=== PATIENT | male | born 1985 | race Caucasian/White ===

== ENCOUNTER 2017-10-15 11:36 | Emergency (ER) | payer MEDICAID ==
[~2017-10-15] VITALS: Ht 180.3 cm; Wt 98.3 kg
[~2017-10-15 11:36] MED LIST: ALPR0.5T9 PO
[2017-10-15] MEDS ORDERED: clindamycin 600mg/D5W 50ml 50 ML IV ONE (14:00)
[2017-10-15] MEDS ORDERED: HYDROmorphone 1 mg/ml syringe IV ONE (14:00)
[2017-10-15] MEDS ORDERED: CLIN150C2 PO (14:03)
[2017-10-15] MEDS ORDERED: HYDR-3965 PO (14:03)
[2017-10-15] MEDS ORDERED: HYDROmorphone inj. 0.5 MG/0.5 ML DISP.SYRIN IV ONE (14:05)
[2017-10-15 14:18] LABS: BASOPHILS # (AUTO) 0.1 X10'3 (0-0.2); BASOPHILS % (AUTO) 0.8 % (0-1); EOSINOPHILS # (AUTO) 0.1 X10'3 (0-0.9); HEMATOCRIT 44.3 % (42.0-52.0); HEMOGLOBIN 15.5 g/dl (14.0-17.9); LYMPHOCYTES # (AUTO) 1.7 X10'3 (1.1-4.8); LYMPHOCYTES % (AUTO) 13.2 % (21-51); MEAN CORPUSCULAR VOLUME 91.5 FL (78-98); MEAN PLATELET VOLUME 6.9 FL (7.4-10.4); MONOCYTES # (AUTO) 0.9 X10'3 (0-0.9); MONOCYTES % (AUTO) 6.6 % (2-12); NEUTROPHILS # (AUTO) 10.3 X10'3 (1.8-7.7); NEUTROPHILS % (AUTO) 78.4 % (42-75); PLATELET COUNT 317 X10'3 (140-440); RED BLOOD COUNT 4.84 X10'6 (4.70-6.10); RED CELL DISTRIBUTION WIDTH 13.4 % (11.5-14.5); WHITE BLOOD COUNT 13.1 X10'3 (4.5-11.0)
[2017-10-15 14:40] LABS: ALANINE AMINOTRANSFERASE 23 U/L (12-78); ALBUMIN 3.9 G/DL (3.4-5.0); ALKALINE PHOSPHATASE 77 IU/L (46-116); ANION GAP 9 (8-16); ASPARTATE AMINO TRANSFERASE 11 U/L (10-37); BILIRUBIN,TOTAL 1.2 MG/DL (0.1-1.0); BLOOD UREA NITROGEN 7 MG/DL (7-18); BUN/CREATININE RATIO 8.1 (5.4-32.0); CALCIUM 9.2 MG/DL (8.5-10.1); CHLORIDE 105 MMOL/L (99-107); CREATININE 0.86 MG/DL (0.60-1.10); GLUCOSE 99 MG/DL (70-104); SODIUM 142 MMOL/L (135-145); TOTAL PROTEIN 7.8 G/DL (6.4-8.2); eGFR > 90 ML/MIN
[2017-10-15] MEDS ORDERED: iohexol 300mg/ml 100ml inj. ONE (14:58)
[2017-10-15 16:16] VITALS: BP 143/79
== END 2017-10-15 16:19 | disposition home or self-care (01) ==
LOC: ER 11:37
DX: K04.7 Periapical abscess without sinus (principal); F17.200 Nicotine dependence, unspecified, uncomplicated; F15.10 Other stimulant abuse, uncomplicated; Z79.899 Other long term (current) drug therapy
CPT/HCPCS: 36415; 70487; 80053; 85025; 96365; 96375; 99285; J1170; J3490; Q9967

== ENCOUNTER 2017-11-09 14:55 | Emergency (ER) | payer MEDICAID ==
[~2017-11-09] VITALS: Ht 177.8 cm; Wt 83.4 kg
[~2017-11-09 14:55] MED LIST changes: +CLIN150C2 PO; +HYDR-3965 PO
[2017-11-09] MEDS ORDERED: ketorolac trometh. 30mg/ml inj. IM ONE (15:45)
[2017-11-09] MEDS ORDERED: LIDOcaine 1% 30ml preserv. free vial IJ ONE (15:50)
[2017-11-09 16:28] LABS: BASOPHILS # (AUTO) 0.1 X10'3 (0-0.2); BASOPHILS % (AUTO) 0.6 % (0-1); EOSINOPHILS # (AUTO) 0.1 X10'3 (0-0.9); EOSINOPHILS % (AUTO) 1.1 % (0-6); HEMATOCRIT 41.7 % (42.0-52.0); HEMOGLOBIN 14.1 g/dl (14.0-17.9); LYMPHOCYTES # (AUTO) 2.2 X10'3 (1.1-4.8); MEAN CORPUSCULAR HEMOGLOBIN 31.5 PG (27.0-31.0); MEAN CORPUSCULAR HGB CONC 33.9 % (33.0-36.5); MEAN PLATELET VOLUME 7.1 FL (7.4-10.4); MONOCYTES # (AUTO) 0.7 X10'3 (0-0.9); MONOCYTES % (AUTO) 6.6 % (2-12); NEUTROPHILS # (AUTO) 7.8 X10'3 (1.8-7.7); NEUTROPHILS % (AUTO) 71.7 % (42-75); PLATELET COUNT 364 X10'3 (140-440); RED BLOOD COUNT 4.48 X10'6 (4.70-6.10); RED CELL DISTRIBUTION WIDTH 13.2 % (11.5-14.5); WHITE BLOOD COUNT 10.8 X10'3 (4.5-11.0)
[2017-11-09 16:48] LABS: ALANINE AMINOTRANSFERASE 34 U/L (12-78); ALKALINE PHOSPHATASE 61 IU/L (46-116); ANION GAP 12 (8-16); ASPARTATE AMINO TRANSFERASE 16 U/L (10-37); BILIRUBIN,TOTAL 0.6 MG/DL (0.1-1.0); BLOOD UREA NITROGEN 10 MG/DL (7-18); BUN/CREATININE RATIO 10.6 (5.4-32.0); CHLORIDE 104 MMOL/L (99-107); CREATININE 0.94 MG/DL (0.60-1.10); GLUCOSE 119 MG/DL (70-104); POTASSIUM 3.6 MMOL/L (3.5-5.1); SODIUM 142 MMOL/L (135-145); TOTAL CARBON DIOXIDE 26.4 MMOL/L (24-32); TOTAL PROTEIN 7.9 G/DL (6.4-8.2); eGFR > 90 ML/MIN
[2017-11-09 17:29] LABS: URINE AMPHETAMINE SCREEN NEGATIVE (Neg); URINE BARBITUATE SCREEN NEGATIVE (Neg); URINE BENZODIAZEPINES SCREEN NEGATIVE (Neg); URINE CANNABINOID SCREEN POSITIVE (Neg); URINE COCAINE SCREEN NEGATIVE (Neg); URINE METHADONE SCREEN NEGATIVE (Neg); URINE OPIATE SCREEN NEGATIVE (Neg); URINE PHENCYCLIDINE SCREEN NEGATIVE (Neg)
[2017-11-09] MEDS ORDERED: TETanus/Pertussis (Acell)/Diphther VAC/PF (Tdap-Adult) 0.5ml syringe IM ONE (17:45)
[2017-11-09 17:50] VITALS: BP 117/83
== END 2017-11-09 18:12 | disposition home or self-care (01) ==
LOC: ER 14:55
DX: L02.01 Cutaneous abscess of face (principal); F15.10 Other stimulant abuse, uncomplicated
CPT/HCPCS: 10060; 36415; 80053; 80305; 83605; 84145; 85025; 87040; 90471; 90715; 93005; 96372; 99285; A6449; J1885; J3490; 41800

== ENCOUNTER 2020-08-20 18:33 | Emergency (ER) | payer MEDICAID ==
[~2020-08-20] VITALS: Ht 177.8 cm; Wt 104.1 kg
[~2020-08-20 18:33] MED LIST changes: -CLIN150C2 PO; -HYDR-3965 PO
[2020-08-20 18:40] VITALS: BP 125/85
[2020-08-21] MEDS ORDERED: TRAZ150T78 PO (17:00)
== END 2020-08-20 22:18 | disposition left against medical advice (07) ==
LOC: ER 18:34
DX: Z00.8 Encounter for other general examination (principal); Z53.21 Procedure and treatment not carried out due to patient leaving prior to being seen by health care provider

== ENCOUNTER 2020-08-21 12:10 | Emergency (ER) | payer MEDICAID ==
--- NOTE | 2020-08-21 13:29 | NUR ---
Patient not in lobby, called three times. Patient on written 2147. [facility] notified of elopement. [facility] notified and they got discription from case management and notified law enforcement.
[2020-08-21] MEDS ORDERED: TRAZ150T78 PO (17:00)
== END 2020-08-21 13:42 | disposition left against medical advice (07) ==
LOC: ER 12:10
DX: Z00.8 Encounter for other general examination (principal); Z53.21 Procedure and treatment not carried out due to patient leaving prior to being seen by health care provider

== ENCOUNTER 2020-08-21 16:12 | Emergency (ER) | payer MEDICAID ==
[~2020-08-21] VITALS: Ht 177.8 cm; Wt 91.3 kg
--- NOTE | 2020-08-21 16:15 | NUR ---
Pt walked back from ER main to bed 23 accompanied by security and PCT. Pt is on a 5150 for DTS and DTO. Pt was brought in earlier and eloped then returned. Per report, pt was due for his WHITNEY today, mother reported that he had been making threats to harm her, his father, and himself. contact was made last evening, pt made threatening statements like, "I will cut you up with a chainsaw." Pt has a Hx of a past suicide attempt by cutting his own throat. Pt also has a Hx of self-mutilation and other self harming behaviors. Pt has been hospitialized for mental health issues several times. Pt's brother committed suicide. During mental health assessment by this RN, pt stated that he felt like stabbing his hands/fingers with knives. When asked pt if he felt like hurting anyone else he laughed inappropriately and would not answer the question. Pt denies ever hurting anyone else in the past. Pt appears to be thought blocking at times. Pt would not answer the questions about AH/VH. Pt is a heavy smoker, his fingernails are nicotine stained, pt smells of alcohol. Addendum: 08/21/20 at 1720 by MAC Pt was dropped off here at the ER by the last evening 08/20/20 but left without being seen.
--- NOTE | 2020-08-21 16:43 | NUR ---
PT COOPERATING WITH BLOOD DRAW FROM [employer].
[2020-08-21 16:57] LABS: URINE AMPHETAMINE SCREEN NEGATIVE (Neg); URINE BARBITUATE SCREEN NEGATIVE (Neg); URINE BENZODIAZEPINES SCREEN NEGATIVE (Neg); URINE CANNABINOID SCREEN POSITIVE (Neg); URINE COCAINE SCREEN NEGATIVE (Neg); URINE METHADONE SCREEN NEGATIVE (Neg); URINE OPIATE SCREEN NEGATIVE (Neg); URINE PHENCYCLIDINE SCREEN NEGATIVE (Neg)
[2020-08-21] MEDS ORDERED: hydrOXYzine 25 MG tablet PO PRN (17:00)
[2020-08-21] MEDS ORDERED: NICOTINE POLACRILEX 2 MG LOZENGE BC PRN (17:00)
[2020-08-21] MEDS ORDERED: TRAZ150T78 PO (17:00)
[2020-08-21] MEDS ORDERED: nicotine 21mg patch - 24 hr TD ONE (17:00)
--- NOTE | 2020-08-21 17:00 | NUR ---
UA was collected and sent to lab.
[2020-08-21 17:13] LABS: BASOPHILS # (AUTO) 0.1 X10'3 (0-0.2); BASOPHILS % (AUTO) 1.3 % (0-1); EOSINOPHILS # (AUTO) 0.1 X10'3 (0-0.9); EOSINOPHILS % (AUTO) 0.9 % (0-6); HEMATOCRIT 43.3 % (42.0-52.0); HEMOGLOBIN 14.7 g/dl (14.0-17.9); LYMPHOCYTES # (AUTO) 2.1 X10'3 (1.1-4.8); LYMPHOCYTES % (AUTO) 20.8 % (21-51); MEAN CORPUSCULAR HGB CONC 33.8 g/dL (33.0-36.5); MEAN CORPUSCULAR VOLUME 94.6 FL (78-98); MEAN PLATELET VOLUME 6.6 FL (7.4-10.4); MONOCYTES # (AUTO) 0.7 X10'3 (0-0.9); MONOCYTES % (AUTO) 6.6 % (2-12); NEUTROPHILS % (AUTO) 70.4 % (42-75); PLATELET COUNT 291 X10'3 (140-440); RED BLOOD COUNT 4.58 X10'6 (4.70-6.10); RED CELL DISTRIBUTION WIDTH 12.5 % (11.5-14.5); WHITE BLOOD COUNT 9.9 X10'3 (4.5-11.0)
[2020-08-21 17:22] LABS: ALANINE AMINOTRANSFERASE 26 U/L (12-78); ALBUMIN/GLOBULIN RATIO 1.3 (1.1-1.5); ALKALINE PHOSPHATASE 60 IU/L (46-116); ANION GAP 12 (8-16); ASPARTATE AMINO TRANSFERASE 13 U/L (10-37); BILIRUBIN,TOTAL 0.5 MG/DL (0.1-1.0); BLOOD UREA NITROGEN 12 MG/DL (7-18); BUN/CREATININE RATIO 12.9 (5.4-32.0); CALCIUM 8.7 MG/DL (8.5-10.1); CHLORIDE 104 MMOL/L (99-107); CREATININE 0.93 MG/DL (0.60-1.10); ETHANOL 0.048 GM/DL (0.0-0.010); GLUCOSE 87 MG/DL (70-104); POTASSIUM 4.1 MMOL/L (3.5-5.1); SODIUM 139 MMOL/L (135-145); TOTAL CARBON DIOXIDE 23.4 MMOL/L (24-32); TOTAL PROTEIN 7.1 G/DL (6.4-8.2); eGFR > 90 ML/MIN
[2020-08-21 17:24] LABS: ACETAMINOPHEN < 2.0 UG/ML (10-30)
--- NOTE | 2020-08-21 17:47 | NUR ---
Pt did not cooperate with answering most questions on the [facility] suicide risk assessment. Pt is on Q 15 minute safety checks. Pt is directly in front of the nurses' station and within sight at all times.
[2020-08-21 17:54] LABS: CLARITY,URINE SLIGHTLY CLOUDY (Clear); COLOR,URINE YELLOW (Yellow); GLUCOSE, URINE NEGATIVE (Neg); KETONES,URINE NEGATIVE (Neg); NITRITES, URINE NEGATIVE (Neg); OCCULT BLOOD,URINE NEGATIVE (Neg); PROTEIN,URINE NEGATIVE (Neg); UROBILINOGEN,URINE 0.2 E.U/dL (0.2-1.0)
[2020-08-21] MEDS ORDERED: traZODone 150mg tablet PO PRN (17:55)
[2020-08-21 18:09] LABS: LEUKOCYTE ESTERASE ,URINE TRACE (Neg); UA COLLECTION TYPE VOIDED
[2020-08-21 18:10] LABS: MUCUS STRANDS MANY /LPF (Neg); RBC,URINE 0-2 /HPF (0-2); SQUAMOUS EPITHELIAL CELL,UR MANY /LPF (FEW)
[2020-08-21 18:11] LABS: BACTERIA,URINE FEW /HPF (Neg); WBC,URINE 30-50 /HPF (0-4)
--- NOTE | 2020-08-21 18:15 | NUR ---
Lab called to say urine was rejected for culture and we need to recollect.
[2020-08-22 05:50] VITALS: BP 111/68
--- NOTE | 2020-08-22 06:04 | NUR ---
told pt needed new urine sample for accuracy. says he cannot urinate at this time
[2020-08-22] MEDS ORDERED: nicotine 21mg patch - 24 hr TD PRN (06:25)
--- NOTE | 2020-08-22 07:28 | NUR ---
Pt transfered from [facility] at 0715. He is A&Ox1; confused as to why he is here and does not know where he is. Pt does not understand he is unable to smoke here and persistenly asks and declines nictotine patch and lozenge. He is unable to cooperate in a full physical and mental health assessment at this time. He denies and has no recollection of threatening his life or his parents (the reason for current hold). UA was obtained for pt to be medically cleared. Pt eloped yesterday; pt wanders and states he doesn't want to be here but is redirectable at this time.
[2020-08-22] MEDS ORDERED: OLANZapine 5mg rapidly disint. tablet PO ONE (07:35)
--- NOTE | 2020-08-22 07:51 | NUR ---
packet faxed to [facility]
--- NOTE | 2020-08-22 08:07 | NUR ---
Breaking primary RN, pt was just given medications, was accepting of care, is now laying in bed, appears calm at this time
--- NOTE | 2020-08-22 08:14 | NUR ---
pt is now on the phone cussing at his mother and becoming agitated, security was called and are standing
--- NOTE | 2020-08-22 08:15 | NUR ---
talked to patients mom, mom informed me that the patient missed his shot [facility]. mom said that the patient has taken seroquel but now takes vraylar 6mg. mom informed that the patient tried to slit his throat and tried to cut off his penis in 2010. his brother committed suicide in 2016 who had aspergers. mom feels comfortable taking patient back home when he is stablized.
[2020-08-22] MEDS ORDERED: LORazepam 1 MG tablet PO ONE (08:30)
--- NOTE | 2020-08-22 10:07 | NUR ---
Pt sleeping after PRN administration. No signs of distress, breathing even and unlabored. He declined breakfast but drank the decaf coffee. [facility] called for report and will call back to notify if accepted.
--- NOTE | 2020-08-22 10:39 | NUR ---
Pt accepted to [facility] pending negative Covid test.
--- NOTE | 2020-08-22 10:49 | NUR ---
Security called for standby for covid test; Pt cooperated with the procedure. Awaiting results.
--- NOTE | 2020-08-22 13:27 | NUR ---
Pt awake, shifting on feet at bedside. Declines lunch tray but sipping on decaf coffee. Pt saying he hopes to leave soon. Taking a few bites of a turkey sandwich. Smacking hands together. Pt is redirectable to bed area.
--- NOTE | 2020-08-22 14:14 | NUR ---
Unable to have discharge paperwork signed due to pt psychosis but attempted to verbally review with patient. Belongings transported with pt. Pt driven by Shon Campbell at 1345. Process Treater given the original 5150. Addendum: 08/22/20 at 1415 by FARHAD Pt not cooperative with vitals prior to transport.
== END 2020-08-22 14:17 ==
LOC: ER 16:12
DX: T14.91XA Suicide attempt, initial encounter (principal); F41.9 Anxiety disorder, unspecified; F20.9 Schizophrenia, unspecified; Z79.899 Other long term (current) drug therapy; Z20.828 Contact with and (suspected) exposure to other viral communicable diseases; X78.9XXA Intentional self-harm by unspecified sharp object, initial encounter; Y93.89 Activity, other specified; Y92.89 Other specified places as the place of occurrence of the external cause; Y99.8 Other external cause status
CPT/HCPCS: 36415; 80053; 80305; 80320; 80329; 81001; 84443; 85025; 87635; 99285; C9803; Q0177

== ENCOUNTER 2021-06-16 20:56 | Emergency (ER) | payer MEDICAID ==
[~2021-06-16] VITALS: Ht 180.3 cm; Wt 109.1 kg
[~2021-06-16 20:56] MED LIST changes: -ALPR0.5T9 PO; +TRAZ150T78 PO
[2021-06-16 21:34] LABS: BASOPHILS # (AUTO) 0.1 X10'3 (0-0.2); BASOPHILS % (AUTO) 0.7 % (0-1); EOSINOPHILS # (AUTO) 0.2 X10'3 (0-0.9); HEMOGLOBIN 14.2 g/dl (14.0-17.9); LYMPHOCYTES # (AUTO) 2.4 X10'3 (1.1-4.8); LYMPHOCYTES % (AUTO) 24.1 % (21-51); MEAN CORPUSCULAR HEMOGLOBIN 30.2 PG (27.0-31.0); MEAN CORPUSCULAR HGB CONC 33.1 g/dL (33.0-36.5); MEAN CORPUSCULAR VOLUME 91.2 FL (78-98); MEAN PLATELET VOLUME 7.2 FL (7.4-10.4); MONOCYTES # (AUTO) 1.2 X10'3 (0-0.9); NEUTROPHILS % (AUTO) 61.2 % (42-75); PLATELET COUNT 252 X10'3 (140-440); RED BLOOD COUNT 4.71 X10'6 (4.70-6.10); RED CELL DISTRIBUTION WIDTH 14.1 % (11.5-14.5); WHITE BLOOD COUNT 9.9 X10'3 (4.5-11.0)
--- NOTE | 2021-06-16 21:39 | NUR ---
SPOKE W/TRINH AT [facility]. RECOMMENDATIONS FOR ZYPREXA OVERDOSE: MONITOR FOR HYPOTENSION, TACHYARDIA, WIDENING QRS AND QTC INTERVALS.FOR QRS INTERVALS >120 TREAT W/ BICARB BOLUS. QTC INTERVAL GREATER THAN 500 TREAT W/ 1 GM MAGNESIUM. IF PT DEVELOPS SEIZURES TREAT W/ ATIVAN. USE NOREPI FOR HYPOTENSION IF FLUID RESUSITATION IS UNSUCESSFUL. CHARCOAL NOT RECOMMENDED AT THIS TIME PER ASPIRATION RISKS.
[2021-06-16 21:46] LABS: URINE AMPHETAMINE SCREEN NEGATIVE (Neg); URINE BARBITUATE SCREEN NEGATIVE (Neg); URINE BENZODIAZEPINES SCREEN NEGATIVE (Neg); URINE CANNABINOID SCREEN POSITIVE (Neg); URINE COCAINE SCREEN NEGATIVE (Neg); URINE METHADONE SCREEN NEGATIVE (Neg); URINE OPIATE SCREEN NEGATIVE (Neg); URINE PHENCYCLIDINE SCREEN NEGATIVE (Neg)
[2021-06-16 21:53] LABS: ALANINE AMINOTRANSFERASE 21 U/L (12-78); ALBUMIN 3.2 G/DL (3.4-5.0); ALKALINE PHOSPHATASE 70 IU/L (46-116); ANION GAP 7 (8-16); ASPARTATE AMINO TRANSFERASE 15 U/L (10-37); BILIRUBIN,TOTAL 0.3 MG/DL (0.1-1.0); BLOOD UREA NITROGEN 21 MG/DL (7-18); BUN/CREATININE RATIO 15.1 (5.4-32.0); CALCIUM 8.2 MG/DL (8.5-10.1); CHLORIDE 112 MMOL/L (99-107); CREATININE 1.39 MG/DL (0.60-1.10); GLUCOSE 107 MG/DL (70-104); POTASSIUM 4.7 MMOL/L (3.5-5.1); SODIUM 146 MMOL/L (135-145); TOTAL CARBON DIOXIDE 27.1 MMOL/L (24-32); TOTAL PROTEIN 6.5 G/DL (6.4-8.2); eGFR 58 ML/MIN
[2021-06-16] MEDS ORDERED: normal saline 1000ml 1,000 ML IV ONE (21:55)
[2021-06-16] MEDS ORDERED: LORazepam 2 mg/ml vial IV ONE (21:55)
[2021-06-16 22:00] LABS: ACETAMINOPHEN < 2.0 UG/ML (10-30); ETHANOL < 0.010 GM/DL (0.0-0.010)
--- NOTE | 2021-06-16 23:41 | NUR ---
CLARK FROM [facility] CALLED FOR UPDATE. LABS, EKG, VITALS, AND MEDICATIONS REVIEWED. REPEAT EKG RECOMMENDED 4 HOURS FROM INITIAL. CONT TO TREAT W/ ATIVAN NEEDED.
[2021-06-17] MEDS ORDERED: LORazepam 2 mg/ml vial IV ONE (00:50)
[2021-06-17] MEDS ORDERED: LORazepam 2 mg/ml vial ONE (01:24)
--- NOTE | 2021-06-17 06:30 | NUR ---
bilateral lower restraints removed, patient educated on process for complete removal, patient unable to verbalize understanding, will continue to monitor
[2021-06-17 07:07] LABS: UA COLLECTION TYPE STRAIGHT CATH
[2021-06-17 07:09] LABS: COLOR,URINE Yellow (Yellow); GLUCOSE, URINE Negative (Neg); KETONES,URINE Negative (Neg); OCCULT BLOOD,URINE Negative (Neg); PROTEIN,URINE Negative (Neg)
[2021-06-17 07:10] LABS: CLARITY,URINE Clear (Clear); LEUKOCYTE ESTERASE ,URINE Negative (Neg); NITRITES, URINE Negative (Neg); UROBILINOGEN,URINE 0.2 E.U/dL (0.2-1.0)
[2021-06-17 08:00] VITALS: BP 142/86
--- NOTE | 2021-06-17 08:52 | NUR ---
PACKET FAXED TO [facility]
--- NOTE | 2021-06-17 13:58 | NUR ---
Patient was on "non-behavioral" restraints from 06/16/21 at 2111 until 06/17/21 at 0730.
--- NOTE | 2021-06-17 14:10 | NUR ---
1400 PATIENT REQUESTED TO SPEAK WITH HIS MOTHER, SEEN UP OUT OF BED, LOOKING AT LUNCH TRAY. STATES HE DOES NOT WANT TO EAT AT THIS TIME. 1410 PATIENT SEEN BY ER STAFF THROWING PHONE AFTER TELEPHONE CONVERSATION AND PROCEEDED TO LAY DOWN ON LEFT SIDE AND RESTING COMFORTABLE. PAT WITHIN SIGHT OF STAFF AT ALL TIMES.
--- NOTE | 2021-06-17 19:05 | NUR ---
PT DC'D WITH [facility]
== END 2021-06-17 19:06 ==
LOC: ER 20:56
DX: T43.592A Poisoning by other antipsychotics and neuroleptics, intentional self-harm, initial encounter (principal); Z20.822 Contact with and (suspected) exposure to COVID-19; R41.82 Altered mental status, unspecified; F41.9 Anxiety disorder, unspecified; F31.9 Bipolar disorder, unspecified; F20.9 Schizophrenia, unspecified; F15.90 Other stimulant use, unspecified, uncomplicated; Z72.89 Other problems related to lifestyle; Z79.899 Other long term (current) drug therapy; Y92.89 Other specified places as the place of occurrence of the external cause
CPT/HCPCS: 36415; 71045; 80053; 80305; 80320; 80329; 81003; 84443; 85025; 87635; 96361; 96374; 96376; 99285; C9803; J2060; J7030; 93005

== ENCOUNTER 2021-12-20 01:59 | Emergency (ER) | payer MEDICAID ==
[~2021-12-20] VITALS: Ht 180.3 cm; Wt 100.0 kg
[2021-12-20 02:45] LABS: CLARITY,URINE CLEAR (Clear); COLOR,URINE STRAW (Yellow); GLUCOSE, URINE NEGATIVE (Neg); KETONES,URINE NEGATIVE (Neg); LEUKOCYTE ESTERASE ,URINE NEGATIVE (Neg); NITRITES, URINE NEGATIVE (Neg); OCCULT BLOOD,URINE NEGATIVE (Neg); PROTEIN,URINE NEGATIVE (Neg); UA COLLECTION TYPE URINAL; UROBILINOGEN,URINE 0.2 E.U/dL (0.2-1.0)
--- NOTE | 2021-12-20 02:45 | NUR ---
NOT IN LOBBY Addendum: 12/20/21 at 0310 by AFLYNN INCORRECT PATIENT
[2021-12-20 02:47] LABS: BASOPHILS % (AUTO) 0.5 % (0-1); EOSINOPHILS # (AUTO) 0.2 X10'3 (0-0.9); EOSINOPHILS % (AUTO) 1.8 % (0-6); HEMOGLOBIN 14.1 g/dl (14.0-17.9); LYMPHOCYTES # (AUTO) 2.4 X10'3 (1.1-4.8); LYMPHOCYTES % (AUTO) 25.6 % (21-51); MEAN CORPUSCULAR HGB CONC 33.5 g/dL (33.0-36.5); MEAN CORPUSCULAR VOLUME 89.5 FL (78-98); MEAN PLATELET VOLUME 7.1 FL (7.4-10.4); MONOCYTES # (AUTO) 0.9 X10'3 (0-0.9); MONOCYTES % (AUTO) 9.3 % (2-12); NEUTROPHILS # (AUTO) 5.9 X10'3 (1.8-7.7); NEUTROPHILS % (AUTO) 62.8 % (42-75); PLATELET COUNT 277 X10'3 (140-440); RED BLOOD COUNT 4.69 X10'6 (4.70-6.10); RED CELL DISTRIBUTION WIDTH 13.9 % (11.5-14.5); WHITE BLOOD COUNT 9.4 X10'3 (4.5-11.0)
[2021-12-20 02:53] LABS: ALANINE AMINOTRANSFERASE 21 U/L (12-78); ALBUMIN 3.8 G/DL (3.4-5.0); ALBUMIN/GLOBULIN RATIO 1.1 (1.1-1.5); ALKALINE PHOSPHATASE 75 IU/L (46-116); ANION GAP 5 (8-16); ASPARTATE AMINO TRANSFERASE 14 U/L (10-37); BILIRUBIN,TOTAL 0.3 MG/DL (0.1-1.0); BLOOD UREA NITROGEN 11 MG/DL (7-18); BUN/CREATININE RATIO 12.5 (5.4-32.0); CALCIUM 8.6 MG/DL (8.5-10.1); CHLORIDE 108 MMOL/L (99-107); CREATININE 0.88 MG/DL (0.60-1.10); GLUCOSE 97 MG/DL (70-104); POTASSIUM 3.9 MMOL/L (3.5-5.1); SODIUM 141 MMOL/L (135-145); TOTAL CARBON DIOXIDE 28.4 MMOL/L (24-32); TOTAL PROTEIN 7.2 G/DL (6.4-8.2); eGFR > 90 ML/MIN
[2021-12-20 02:54] LABS: URINE AMPHETAMINE SCREEN NEGATIVE (Neg); URINE BARBITUATE SCREEN NEGATIVE (Neg); URINE BENZODIAZEPINES SCREEN NEGATIVE (Neg); URINE CANNABINOID SCREEN POSITIVE (Neg); URINE COCAINE SCREEN NEGATIVE (Neg); URINE METHADONE SCREEN NEGATIVE (Neg); URINE OPIATE SCREEN NEGATIVE (Neg); URINE PHENCYCLIDINE SCREEN NEGATIVE (Neg)
[2021-12-20] MEDS ORDERED: QUET200T31 PO (03:08)
[2021-12-20] MEDS ORDERED: CARI6CAP PO (03:08)
[2021-12-20] MEDS ORDERED: CITA20TA16 PO (03:08)
[2021-12-20] MEDS ORDERED: INDLA60C PO (03:08)
--- NOTE | 2021-12-20 03:53 | NUR ---
Patient's packet was sent to [facility].
[2021-12-20] MEDS ORDERED: LORazepam 2 mg/ml vial IV ONE (05:10)
[2021-12-20] MEDS ORDERED: traZODone 150mg tablet PO PRN (08:45)
[2021-12-20] MEDS ORDERED: citalopram 20mg tablet PO SCH (08:47)
[2021-12-20] MEDS ORDERED: propranolol LA 60 MG cap.SA.24H PO SCH (08:47)
[2021-12-20] MEDS ORDERED: CARIPRAZINE 1.5 MG CAPSULE PO SCH (08:48)
--- NOTE | 2021-12-20 13:56 | NUR ---
[facility] called regarding the pt, stating that he has been accepted to [facility] and they are wanting the pt around 1999. [facility] will be calling back with a knot picker cloth time.
--- NOTE | 2021-12-20 14:04 | NUR ---
Pt will be picked up by [facility] at 1930
[2021-12-20] MEDS ORDERED: nicotine 21mg patch - 24 hr TD ONE (18:50)
--- NOTE | 2021-12-20 18:59 | NUR ---
The patient has been resting on his bed. He ate 100% of his dinner. His affect is flat. His speech is monotone. He stated his mood his "pretty good" He did state he felt anxious. He denies thoughts to harm himself or others. He stated that he regrets the fight he had with his father. He does admit to feeling paranoid. His appetite is good and he had a snack after his evening meal. He was asking for a nicotine patch and Dr. Berrios made aware and order received.
[2021-12-20 19:58] VITALS: BP 111/83
[2021-12-20] MEDS ORDERED: quetiapine 100mg tablet PO SCH (21:00)
== END 2021-12-20 20:01 ==
LOC: ER 02:00
DX: F20.9 Schizophrenia, unspecified (principal); F41.9 Anxiety disorder, unspecified; F15.10 Other stimulant abuse, uncomplicated; Z20.822 Contact with and (suspected) exposure to COVID-19
CPT/HCPCS: 36415; 80053; 80305; 81003; 84443; 85025; 87635; 99285; C9803

== ENCOUNTER 2023-11-17 18:12 | Inpatient (IN) | payer MEDICAID ==
[~2023-11-17] VITALS: Ht 180.3 cm; Wt 115.0 kg
[~2023-11-17 18:12] MED LIST changes: +CARI6CAP PO; +CITA20TA16 PO; +INDLA60C PO; +QUET200T31 PO
[2023-11-17] MEDS: normal saline 1000ML IV soln IVB ONE (19:42)
[2023-11-17 19:52] LABS: BASOPHILS % (AUTO) 0.3 % (0-1); EOSINOPHILS # (AUTO) 0.2 X10'3 (0-0.9); EOSINOPHILS % (AUTO) 1.1 % (0-6); HEMATOCRIT 41.3 % (42.0-52.0); HEMOGLOBIN 13.8 g/dl (14.0-17.9); LYMPHOCYTES # (AUTO) 1.6 X10'3 (1.1-4.8); LYMPHOCYTES % (AUTO) 11.7 % (21-51); MEAN CORPUSCULAR HEMOGLOBIN 30.3 PG (27.0-31.0); MEAN CORPUSCULAR HGB CONC 33.4 g/dL (33.0-36.5); MEAN CORPUSCULAR VOLUME 90.9 FL (78-98); MEAN PLATELET VOLUME 6.8 FL (7.4-10.4); MONOCYTES # (AUTO) 0.8 X10'3 (0-0.9); NEUTROPHILS # (AUTO) 10.8 X10'3 (1.8-7.7); NEUTROPHILS % (AUTO) 80.9 % (42-75); PLATELET COUNT 286 X10'3 (140-440); RED BLOOD COUNT 4.54 X10'6 (4.70-6.10); RED CELL DISTRIBUTION WIDTH 13.8 % (11.5-14.5); WHITE BLOOD COUNT 13.3 X10'3 (4.5-11.0)
[2023-11-17 20:04] LABS: ALBUMIN 3.7 G/DL (3.4-5.0); ANION GAP 12 (8-16); BLOOD UREA NITROGEN 20 MG/DL (7-18); CALCIUM 8.5 MG/DL (8.5-10.1); CHLORIDE 104 MMOL/L (99-107); CREATININE 1.25 MG/DL (0.60-1.10); GLUCOSE 159 MG/DL (70-104); POTASSIUM 4.1 MMOL/L (3.5-5.1); SODIUM 142 MMOL/L (135-145); TOTAL CARBON DIOXIDE 25.9 MMOL/L (24-32); eCRCL 85 ML/MIN; eGFR 64 ML/MIN
[2023-11-17] MEDS: ringers solution, lacted 1,000 ML IV ONE (22:20)
[2023-11-17] MEDS ORDERED: magnesium 4gm in 100ml NS 100 ML IV PRN (22:40)
[2023-11-17] MEDS ORDERED: magnesium hydroxide 30ml (MOM) UD suspension PO PRN (22:40)
[2023-11-17] MEDS ORDERED: ondansetron/PF 4mg/2ml inj IV PRN (22:40)
[2023-11-17] MEDS ORDERED: potassium Cl 20 mEq SR tablet PO PRN ×2 (22:40)
[2023-11-17] MEDS ORDERED: potassium Cl 40MEQ/1/2NS 520ml 520 ML IV PRN (22:40)
[2023-11-17] MEDS ORDERED: magnesium Cl slow-release 64mg tablet PO PRN (22:40)
[2023-11-17] MEDS ORDERED: mag hydrox/Alum hydrox/simeth 30ml oral suspension PO PRN (22:40)
[2023-11-17] MEDS ORDERED: acetaminophen 325mg tablet PO PRN (22:40)
[2023-11-18] VITALS (9 sets, daily range): BP systolic 97–145; BP diastolic 53–79; PULSE 70–101; RESP 15–18; TEMP 97.8–98.2; O2SAT 95–98
[2023-11-18] MEDS: normal saline 1000ml 1,000 ML IV SCH (01:38)
[2023-11-18] MEDS: nicotine 21mg patch - 24 hr TD SCH (08:12)
[2023-11-18 08:43] LABS: BASOPHILS # (AUTO) 0.1 X10'3 (0-0.2); BASOPHILS % (AUTO) 0.7 % (0-1); EOSINOPHILS # (AUTO) 0.2 X10'3 (0-0.9); HEMATOCRIT 35.3 % (42.0-52.0); HEMOGLOBIN 12.1 g/dl (14.0-17.9); LYMPHOCYTES # (AUTO) 1.8 X10'3 (1.1-4.8); MEAN CORPUSCULAR HGB CONC 34.2 g/dL (33.0-36.5); MEAN CORPUSCULAR VOLUME 90.7 FL (78-98); MEAN PLATELET VOLUME 7.7 FL (7.4-10.4); MONOCYTES # (AUTO) 0.8 X10'3 (0-0.9); MONOCYTES % (AUTO) 8.6 % (2-12); NEUTROPHILS # (AUTO) 6.4 X10'3 (1.8-7.7); NEUTROPHILS % (AUTO) 69.7 % (42-75); PLATELET COUNT 259 X10'3 (140-440); RED BLOOD COUNT 3.89 X10'6 (4.70-6.10); RED CELL DISTRIBUTION WIDTH 13.9 % (11.5-14.5); WHITE BLOOD COUNT 9.2 X10'3 (4.5-11.0)
[2023-11-18 09:01] LABS: CHLORIDE 111 MMOL/L (99-107); POTASSIUM 3.6 MMOL/L (3.5-5.1); SODIUM 146 MMOL/L (135-145)
[2023-11-18 09:07] LABS: ALANINE AMINOTRANSFERASE 18 U/L (12-78); ALBUMIN 2.8 G/DL (3.4-5.0); ALBUMIN/GLOBULIN RATIO 0.9 (1.1-1.5); ALKALINE PHOSPHATASE 66 IU/L (46-116); ANION GAP 14 (8-16); BILIRUBIN,TOTAL 0.6 MG/DL (0.1-1.0); BLOOD UREA NITROGEN 12 MG/DL (7-18); BUN/CREATININE RATIO 17.9 (10.0-20.0); CALCIUM 7.9 MG/DL (8.5-10.1); CREATININE 0.67 MG/DL (0.60-1.10); GLUCOSE 110 MG/DL (70-104); TOTAL CARBON DIOXIDE 21.4 MMOL/L (24-32); TOTAL PROTEIN 5.8 G/DL (6.4-8.2); eCRCL 158 ML/MIN; eGFR > 90 ML/MIN
[2023-11-18 09:36] LABS: ASPARTATE AMINO TRANSFERASE 11 U/L (10-37)
[2023-11-18] MEDS ORDERED: OLAN15TA3 PO (14:38)
[2023-11-18] MEDS ORDERED: BUSP10TA11 PO (14:38)
[2023-11-18] MEDS: quetiapine 100mg tablet PO SCH (15:36)
[2023-11-18] MEDS: CITALOpram 10mg tablet PO SCH (15:37)
[2023-11-18] MEDS: propranolol 10mg tablet PO SCH (15:37)
[2023-11-18 16:16] LABS: BILIRUBIN,URINE NEGATIVE (Neg); CLARITY,URINE CLEAR (Clear); COLOR,URINE YELLOW (Yellow); GLUCOSE, URINE NEGATIVE (Neg); KETONES,URINE NEGATIVE (Neg); LEUKOCYTE ESTERASE ,URINE NEGATIVE (Neg); NITRITES, URINE NEGATIVE (Neg); OCCULT BLOOD,URINE NEGATIVE (Neg); PROTEIN,URINE NEGATIVE (Neg); UROBILINOGEN,URINE 0.2 E.U/dL (0.2-1.0)
[2023-11-18 16:21] LABS: URINE AMPHETAMINE SCREEN NEGATIVE (Neg); URINE BARBITUATE SCREEN NEGATIVE (Neg); URINE BENZODIAZEPINES SCREEN NEGATIVE (Neg); URINE METHADONE SCREEN NEGATIVE (Neg)
[2023-11-18 16:22] LABS: URINE CANNABINOID SCREEN POSITIVE (Neg); URINE COCAINE SCREEN NEGATIVE (Neg); URINE OPIATE SCREEN NEGATIVE (Neg); URINE PHENCYCLIDINE SCREEN NEGATIVE (Neg)
[2023-11-18 16:36] LABS: UA COLLECTION TYPE NON-SPECIFIED
[2023-11-18] MEDS: traZODone 150mg tablet PO SCH (20:27)
[2023-11-19] VITALS (8 sets, daily range): BP systolic 91–115; BP diastolic 47–71; PULSE 60–85; RESP 14–19; TEMP 97.3–98.2; O2SAT 94–100
[2023-11-19 06:28] LABS: BASOPHILS % (AUTO) 0.5 % (0-1); EOSINOPHILS # (AUTO) 0.2 X10'3 (0-0.9); EOSINOPHILS % (AUTO) 2.5 % (0-6); HEMOGLOBIN 11.6 g/dl (14.0-17.9); LYMPHOCYTES # (AUTO) 2.2 X10'3 (1.1-4.8); LYMPHOCYTES % (AUTO) 30.5 % (21-51); MEAN CORPUSCULAR HEMOGLOBIN 30.8 PG (27.0-31.0); MEAN CORPUSCULAR HGB CONC 34.1 g/dL (33.0-36.5); MEAN CORPUSCULAR VOLUME 90.4 FL (78-98); MEAN PLATELET VOLUME 7.2 FL (7.4-10.4); MONOCYTES # (AUTO) 0.8 X10'3 (0-0.9); MONOCYTES % (AUTO) 10.8 % (2-12); NEUTROPHILS # (AUTO) 4.1 X10'3 (1.8-7.7); NEUTROPHILS % (AUTO) 55.7 % (42-75); PLATELET COUNT 238 X10'3 (140-440); RED BLOOD COUNT 3.76 X10'6 (4.70-6.10); RED CELL DISTRIBUTION WIDTH 13.7 % (11.5-14.5); WHITE BLOOD COUNT 7.4 X10'3 (4.5-11.0)
[2023-11-19 06:59] LABS: ALANINE AMINOTRANSFERASE 16 U/L (12-78); ALBUMIN 2.4 G/DL (3.4-5.0); ALBUMIN/GLOBULIN RATIO 0.8 (1.1-1.5); ALKALINE PHOSPHATASE 61 IU/L (46-116); ANION GAP 9 (8-16); ASPARTATE AMINO TRANSFERASE 7 U/L (10-37); BILIRUBIN,TOTAL 0.5 MG/DL (0.1-1.0); BLOOD UREA NITROGEN 12 MG/DL (7-18); BUN/CREATININE RATIO 17.4 (10.0-20.0); CALCIUM 7.8 MG/DL (8.5-10.1); CHLORIDE 113 MMOL/L (99-107); CREATININE 0.69 MG/DL (0.60-1.10); GLUCOSE 97 MG/DL (70-104); POTASSIUM 3.6 MMOL/L (3.5-5.1); SODIUM 146 MMOL/L (135-145); TOTAL CARBON DIOXIDE 23.8 MMOL/L (24-32); TOTAL PROTEIN 5.6 G/DL (6.4-8.2); eCRCL 153 ML/MIN; eGFR > 90 ML/MIN
[2023-11-19 15:26] LABS: HBSAG SCREEN Negative (Negative); HEP B CORE AB, IGM Negative (Negative); HEP B CORE AB, TOT Negative (Negative)
[2023-11-19] MEDS: LIDOcaine 5% patch TP SCH (17:40)
[2023-11-20 06:29] LABS: BASOPHILS % (AUTO) 0.3 % (0-1); EOSINOPHILS # (AUTO) 0.2 X10'3 (0-0.9); EOSINOPHILS % (AUTO) 2.9 % (0-6); HEMATOCRIT 34.2 % (42.0-52.0); HEMOGLOBIN 11.6 g/dl (14.0-17.9); LYMPHOCYTES # (AUTO) 2.1 X10'3 (1.1-4.8); LYMPHOCYTES % (AUTO) 33.2 % (21-51); MEAN CORPUSCULAR HEMOGLOBIN 30.7 PG (27.0-31.0); MEAN CORPUSCULAR HGB CONC 33.8 g/dL (33.0-36.5); MEAN CORPUSCULAR VOLUME 90.8 FL (78-98); MEAN PLATELET VOLUME 7.3 FL (7.4-10.4); MONOCYTES # (AUTO) 0.6 X10'3 (0-0.9); MONOCYTES % (AUTO) 9.9 % (2-12); NEUTROPHILS # (AUTO) 3.4 X10'3 (1.8-7.7); NEUTROPHILS % (AUTO) 53.7 % (42-75); PLATELET COUNT 257 X10'3 (140-440); RED BLOOD COUNT 3.77 X10'6 (4.70-6.10); RED CELL DISTRIBUTION WIDTH 13.8 % (11.5-14.5); WHITE BLOOD COUNT 6.4 X10'3 (4.5-11.0)
[2023-11-20 06:33] LABS: ALANINE AMINOTRANSFERASE 17 U/L (12-78); ALBUMIN 2.6 G/DL (3.4-5.0); ALBUMIN/GLOBULIN RATIO 0.8 (1.1-1.5); ALKALINE PHOSPHATASE 62 IU/L (46-116); ANION GAP 6 (8-16); ASPARTATE AMINO TRANSFERASE 11 U/L (10-37); BILIRUBIN,TOTAL 0.5 MG/DL (0.1-1.0); BLOOD UREA NITROGEN 9 MG/DL (7-18); BUN/CREATININE RATIO 11.5 (10.0-20.0); CALCIUM 8.2 MG/DL (8.5-10.1); CHLORIDE 111 MMOL/L (99-107); CREATININE 0.78 MG/DL (0.60-1.10); GLUCOSE 96 MG/DL (70-104); POTASSIUM 4.1 MMOL/L (3.5-5.1); SODIUM 145 MMOL/L (135-145); TOTAL CARBON DIOXIDE 27.7 MMOL/L (24-32); TOTAL PROTEIN 5.9 G/DL (6.4-8.2); eCRCL 135 ML/MIN; eGFR > 90 ML/MIN
[2023-11-20 07:34] VITALS: BP 99/56; PULSE 67; RESP 18; TEMP 98.5; O2SAT 98
[2023-11-20 08:43] VITALS: BP 113/59; PULSE 76; RESP 18
[2023-11-20 08:44] VITALS: RESP 18
[2023-11-20 10:00] VITALS: BP 121/69; PULSE 96; RESP 16; TEMP 98.7; O2SAT 96
[2023-11-20] MEDS ORDERED: NICO-687 TD (12:55)
[2023-11-20] MEDS ORDERED: LIDO700A47 TP (12:55)
[2023-11-21] MEDS ORDERED: OLAN15TA35 PO (21:49)
[2023-11-21] MEDS ORDERED: CITA40TA16 PO (21:49)
[2023-11-21] MEDS ORDERED: BUSP10TA3 PO (21:49)
[2023-11-21] MEDS ORDERED: BUS15T PO (21:51)
[2023-11-21] MEDS ORDERED: LIDO700A47 TOP (21:52)
== END 2023-11-20 16:56 | disposition home or self-care (01) | DRG 207 ==
LOC: ER 18:14 → ED HOLD 22:42 → EDBEDREQ 23:36 → ORTHO 4S 11-18 00:30
PROVIDERS: ADMIT Surgery; ATTEND Internal Medicine
PROC: 2W3MX1Z Immobilization of Left Lower Extremity using Splint (ICD-10-PCS; 2023-11-17)
PROC: 4A00X4Z Measurement of Central Nervous Electrical Activity, External Approach (ICD-10-PCS; principal; 2023-11-18)
DX: I95.9 Hypotension, unspecified (principal); F20.0 Paranoid schizophrenia; F32.A Depression, unspecified; F41.9 Anxiety disorder, unspecified; F15.90 Other stimulant use, unspecified, uncomplicated; M54.50 Low back pain, unspecified; F17.210 Nicotine dependence, cigarettes, uncomplicated; S82.832A Other fracture of upper and lower end of left fibula, initial encounter for closed fracture; X58.XXXA Exposure to other specified factors, initial encounter; Y93.89 Activity, other specified; Y92.090 Kitchen in other non-institutional residence as the place of occurrence of the external cause; Y99.8 Other external cause status
CPT/HCPCS: 36415; 71045; 73590; 80048; 80053; 80305; 81003; 82948; 85025; 86704; 86705; 87081; 87340; 93005; 95816; 96360; 99285; A6212; G0378; J7030; J7120

== ENCOUNTER 2023-11-21 16:34 | Inpatient (IN) | payer MEDICAID ==
[~2023-11-21] VITALS: Ht 180.3 cm; Wt 115.9 kg
[~2023-11-21 16:34] MED LIST changes: +BUSP10TA11 PO; -INDLA60C PO; +LIDO700A47 TP; +NICO-687 TD; +OLAN15TA3 PO; -QUET200T31 PO
[2023-11-21 18:05] LABS: BASOPHILS % (AUTO) 0.3 % (0-1); EOSINOPHILS # (AUTO) 0.1 X10'3 (0-0.9); EOSINOPHILS % (AUTO) 0.9 % (0-6); HEMATOCRIT 35.7 % (42.0-52.0); HEMOGLOBIN 12.2 g/dl (14.0-17.9); LYMPHOCYTES # (AUTO) 1.8 X10'3 (1.1-4.8); LYMPHOCYTES % (AUTO) 16.9 % (21-51); MEAN CORPUSCULAR HEMOGLOBIN 31.3 PG (27.0-31.0); MEAN CORPUSCULAR HGB CONC 34.3 g/dL (33.0-36.5); MEAN CORPUSCULAR VOLUME 91.3 FL (78-98); MEAN PLATELET VOLUME 6.8 FL (7.4-10.4); MONOCYTES # (AUTO) 0.8 X10'3 (0-0.9); MONOCYTES % (AUTO) 7.4 % (2-12); NEUTROPHILS # (AUTO) 7.9 X10'3 (1.8-7.7); NEUTROPHILS % (AUTO) 74.5 % (42-75); PLATELET COUNT 289 X10'3 (140-440); RED BLOOD COUNT 3.91 X10'6 (4.70-6.10); WHITE BLOOD COUNT 10.7 X10'3 (4.5-11.0)
[2023-11-21 18:21] LABS: ALBUMIN 3.2 G/DL (3.4-5.0); ANION GAP 10 (8-16); BLOOD UREA NITROGEN 14 MG/DL (7-18); BUN/CREATININE RATIO 15.7 (10.0-20.0); CALCIUM 8.7 MG/DL (8.5-10.1); CHLORIDE 108 MMOL/L (99-107); CREATININE 0.89 MG/DL (0.60-1.10); ETHANOL < 10 MG/DL (<10); GLUCOSE 89 MG/DL (70-104); POTASSIUM 4.3 MMOL/L (3.5-5.1); SODIUM 146 MMOL/L (135-145); TOTAL CARBON DIOXIDE 28.2 MMOL/L (24-32); eCRCL 119 ML/MIN; eGFR > 90 ML/MIN
[2023-11-21 20:31] LABS: BILIRUBIN,URINE NEGATIVE (Neg); CLARITY,URINE SLIGHTLY CLOUDY (Clear); COLOR,URINE YELLOW (Yellow); GLUCOSE, URINE NEGATIVE (Neg); KETONES,URINE NEGATIVE (Neg); LEUKOCYTE ESTERASE ,URINE NEGATIVE (Neg); NITRITES, URINE NEGATIVE (Neg); OCCULT BLOOD,URINE NEGATIVE (Neg); PROTEIN,URINE NEGATIVE (Neg); UROBILINOGEN,URINE 0.2 E.U/dL (0.2-1.0)
[2023-11-21 20:42] LABS: UA COLLECTION TYPE CLN CATCH MIDSTREAM
[2023-11-21 20:43] LABS: BACTERIA,URINE FEW /HPF (Neg); MUCUS STRANDS FEW /LPF (Neg); RBC,URINE 0-2 /HPF (0-2); SQUAMOUS EPITHELIAL CELL,UR MANY /LPF (FEW); WBC,URINE 0-4 /HPF (0-4)
[2023-11-21 20:44] LABS: AMORPHOUS PHOSPHATES 1+
[2023-11-21 20:51] LABS: URINE AMPHETAMINE SCREEN NEGATIVE (Neg); URINE BARBITUATE SCREEN NEGATIVE (Neg); URINE BENZODIAZEPINES SCREEN NEGATIVE (Neg); URINE CANNABINOID SCREEN POSITIVE (Neg); URINE COCAINE SCREEN NEGATIVE (Neg); URINE METHADONE SCREEN NEGATIVE (Neg); URINE OPIATE SCREEN NEGATIVE (Neg); URINE PHENCYCLIDINE SCREEN NEGATIVE (Neg)
[2023-11-21] MEDS ORDERED: BUSP10TA3 PO (21:49)
[2023-11-21] MEDS ORDERED: OLAN15TA35 PO (21:49)
[2023-11-21] MEDS ORDERED: CITA40TA16 PO (21:49)
[2023-11-21] MEDS ORDERED: BUS15T PO (21:51)
[2023-11-21] MEDS ORDERED: LIDO700A47 TOP (21:52)
[2023-11-21] MEDS ORDERED: acetaminophen 325mg tablet PO PRN (22:05)
[2023-11-21] MEDS: OLANZapine 2.5MG tablet PO ONE (22:14)
[2023-11-22] MEDS: citalopram 20mg tablet PO SCH (08:38)
[2023-11-22] MEDS: busPIRone 15mg tablet PO SCH (08:38)
[2023-11-22] MEDS: nicotine 21mg patch - 24 hr TD SCH (08:39)
[2023-11-22] MEDS: CARIPRAZINE 1.5 MG CAPSULE PO SCH (08:39)
[2023-11-22] MEDS: LIDOcaine 5% patch TP SCH (08:42)
[2023-11-22 16:45] VITALS: BP 137/94; PULSE 90; RESP 16; TEMP 98.5; O2SAT 99
[2023-11-22] MEDS ORDERED: NICOTINE POLACRILEX 2 MG LOZENGE BC PRN (17:40)
[2023-11-22] MEDS ORDERED: loperamide 2mg capsule PO PRN (17:40)
[2023-11-22] MEDS ORDERED: mag hydrox/Alum hydrox/simeth 30ml oral suspension PO PRN (17:40)
[2023-11-22] MEDS ORDERED: magnesium hydroxide 30ml (MOM) UD suspension PO PRN (17:40)
[2023-11-22 19:30] VITALS: BP 145/100; PULSE 105; RESP 18; TEMP 97.1; O2SAT 98
[2023-11-22] MEDS: OLANZAPINE 5 MG TABLET PO SCH (20:18)
[2023-11-23 07:10] VITALS: RESP 16; O2SAT 96
[2023-11-23] MEDS: nicotine 21mg patch - 24 hr TD SCH (08:07)
[2023-11-23 08:12] VITALS: BP 119/66; PULSE 72; RESP 16; TEMP 98.9; O2SAT 96
[2023-11-23 09:35] VITALS: BP 133/88; PULSE 118; RESP 18; TEMP 97; O2SAT 96
[2023-11-23 14:27] LABS: CHOL/HDL RATIO 3.3 (0.00-4.99); CHOLESTEROL 174 MG/DL (0-200); HDL CHOLESTEROL 52 MG/DL (35-60); LDL CHOLESTEROL 95 MG/DL (50-100); TRIGLYCERIDES 200 MG/DL (20-135)
[2023-11-23 14:33] LABS: HEMOGLOBIN A1C 5.3 % (4.5-6.2)
[2023-11-23 19:37] VITALS: BP 142/83; PULSE 117; RESP 17; TEMP 97.8; O2SAT 97
[2023-11-23 22:18] VITALS: PULSE 93
[2023-11-24 07:00] VITALS: RESP 16; O2SAT 96
[2023-11-24 08:00] VITALS: BP 105/64; PULSE 74; RESP 16; TEMP 98.4; O2SAT 99
[2023-11-24] MEDS: acetaminophen 325mg tablet PO PRN (08:04)
[2023-11-24 19:00] VITALS: BP 134/85; PULSE 101; RESP 18; TEMP 98.4; O2SAT 96
[2023-11-25 07:18] VITALS: BP 95/60; PULSE 82; RESP 16; TEMP 99.1; O2SAT 98
[2023-11-25 08:47] VITALS: RESP 16; O2SAT 98
[2023-11-25 19:15] VITALS: BP 127/83; PULSE 114; RESP 12; TEMP 98.1; O2SAT 96
[2023-11-26 07:00] VITALS: RESP 16; O2SAT 99
[2023-11-26 08:00] VITALS: BP 130/81; PULSE 93; RESP 16; TEMP 98; O2SAT 99
[2023-11-26 09:54] LABS: HBSAG SCREEN Negative (Negative); HEP B CORE AB, IGM Negative (Negative); HEP B CORE AB, TOT Negative (Negative)
[2023-11-26 20:00] VITALS: BP 121/82; PULSE 107; RESP 20; TEMP 98.4; O2SAT 99
[2023-11-27 07:30] VITALS: BP 142/95; PULSE 61; RESP 16; TEMP 98.2; O2SAT 98
[2023-11-27 07:40] VITALS: RESP 16; O2SAT 98
[2023-11-27 20:00] VITALS: BP 118/87; PULSE 105; RESP 18; TEMP 98.4; O2SAT 97
[2023-11-27] MEDS: OLANZAPINE 5 MG TABLET PO SCH (20:34)
[2023-11-27] MEDS: acetaminophen 325mg tablet PO PRN (21:05)
[2023-11-28 07:28] VITALS: BP 119/83; PULSE 90; RESP 18; TEMP 97.6; O2SAT 98
[2023-11-28 07:30] VITALS: RESP 16
[2023-11-28 19:00] VITALS: RESP 16; O2SAT 98
[2023-11-28 19:40] VITALS: BP 123/79; PULSE 96; RESP 16; TEMP 98.5; O2SAT 98
[2023-11-28 20:51] VITALS: RESP 16; O2SAT 98
[2023-11-29 07:00] VITALS: RESP 16; O2SAT 98
[2023-11-29 08:00] VITALS: BP 121/82; PULSE 108; RESP 16; TEMP 98.1; O2SAT 98
[2023-11-29 18:59] VITALS: BP 118/81; PULSE 96; RESP 16; TEMP 98; O2SAT 97
[2023-11-29 19:47] VITALS: BP 118/81; PULSE 96; RESP 16; TEMP 98; O2SAT 97
[2023-11-30 07:00] VITALS: BP 139/85; PULSE 91; RESP 12; TEMP 97.3; O2SAT 97
[2023-11-30] MEDS: citalopram 20mg tablet PO ONE (16:35)
[2023-11-30 19:00] VITALS: RESP 20; O2SAT 96
[2023-11-30 19:51] VITALS: BP 136/85; PULSE 98; RESP 20; TEMP 98.2; O2SAT 96
[2023-12-01 07:00] VITALS: BP 128/86; PULSE 98; RESP 16; TEMP 96.8; O2SAT 99
[2023-12-01] MEDS: citalopram 20mg tablet PO SCH (12:30)
[2023-12-01 19:00] VITALS: RESP 16; O2SAT 96
[2023-12-01 19:08] VITALS: BP 136/84; PULSE 99; RESP 16; TEMP 98.2; O2SAT 96
[2023-12-02 07:00] VITALS: RESP 16; O2SAT 100
[2023-12-02] MEDS: CITALOpram 10mg tablet PO SCH (07:20)
[2023-12-02 07:30] VITALS: BP 126/82; PULSE 103; RESP 16; TEMP 97.5; O2SAT 100
[2023-12-02 19:00] VITALS: BP 137/88; PULSE 103; RESP 20; TEMP 98.6; O2SAT 100; O2SAT 96
[2023-12-03 07:00] VITALS: RESP 16; O2SAT 95
[2023-12-03 08:00] VITALS: BP 129/80; PULSE 94; RESP 14; TEMP 98; O2SAT 99
[2023-12-03 19:00] VITALS: RESP 16; O2SAT 97
[2023-12-03 20:00] VITALS: BP 125/90; PULSE 83; RESP 16; TEMP 97.8; O2SAT 97
[2023-12-04 07:00] VITALS: RESP 18; O2SAT 98
[2023-12-04 08:00] VITALS: BP 135/82; PULSE 92; RESP 16; TEMP 97.5; O2SAT 98
[2023-12-04] MEDS: OLANZAPINE 5 MG TABLET PO SCH (13:07)
[2023-12-04 18:49] VITALS: RESP 18; O2SAT 99
[2023-12-04 20:00] VITALS: BP 128/87; PULSE 95; RESP 18; TEMP 98.2; O2SAT 99
[2023-12-05 07:00] VITALS: RESP 16; O2SAT 97
[2023-12-05 07:36] VITALS: BP 120/86; PULSE 92; RESP 16; TEMP 97.4; O2SAT 97
[2023-12-05 09:25] VITALS: RESP 16; O2SAT 97
[2023-12-05 19:21] VITALS: BP 125/81; PULSE 88; RESP 16; TEMP 97.8; O2SAT 99
[2023-12-06 07:00] VITALS: BP 133/85; PULSE 86; RESP 16; TEMP 97.8; O2SAT 99
[2023-12-06 19:30] VITALS: PULSE 111; RESP 18; TEMP 98.2; O2SAT 98
[2023-12-07 07:21] VITALS: RESP 16
[2023-12-07 07:23] VITALS: BP 134/89; PULSE 95; RESP 16; TEMP 97.9; O2SAT 100
[2023-12-07 19:30] VITALS: BP 141/84; PULSE 108; RESP 16; TEMP 98.2; O2SAT 97
[2023-12-08 07:00] VITALS: RESP 16; O2SAT 97
[2023-12-08 08:00] VITALS: BP 126/80; PULSE 105; RESP 16; TEMP 98; O2SAT 97
[2023-12-08 18:52] VITALS: BP 137/87; PULSE 104; RESP 20; TEMP 98.1; O2SAT 99
[2023-12-08 19:00] VITALS: RESP 20; O2SAT 99
[2023-12-08 20:00] VITALS: BP 137/87; PULSE 104; RESP 20; TEMP 98.1; O2SAT 99
[2023-12-08 21:41] VITALS: RESP 20; O2SAT 99
[2023-12-09 06:53] VITALS: RESP 16; O2SAT 97
[2023-12-09 08:00] VITALS: BP 129/77; PULSE 86; RESP 12; TEMP 97.3; O2SAT 99
[2023-12-09 19:00] VITALS: RESP 16; O2SAT 99
[2023-12-09 20:00] VITALS: BP 135/86; PULSE 111; RESP 16; TEMP 98.3; O2SAT 99
[2023-12-10 06:56] VITALS: RESP 16; O2SAT 97
[2023-12-10 08:00] VITALS: BP 135/89; PULSE 105; RESP 17; TEMP 98.2; O2SAT 98
[2023-12-10] MEDS: venlafaxine XR 37.5mg cap (Q24H) PO ONE (09:49)
[2023-12-10 19:00] VITALS: RESP 16; O2SAT 98
[2023-12-10 20:00] VITALS: BP 147/86; PULSE 87; RESP 16; TEMP 98.8; O2SAT 98
[2023-12-11 07:00] VITALS: RESP 16; O2SAT 99
[2023-12-11] MEDS: venlafaxine XR 75mg capsule (Q24H) PO SCH (07:37)
[2023-12-11] MEDS: citalopram 20mg tablet PO SCH (07:37)
[2023-12-11 08:00] VITALS: BP 125/88; PULSE 89; RESP 16; TEMP 98.6; O2SAT 99
[2023-12-11 19:00] VITALS: BP 136/79; PULSE 103; RESP 16; TEMP 97.6; O2SAT 98
[2023-12-11 19:49] VITALS: RESP 16; O2SAT 98
[2023-12-12 07:00] VITALS: RESP 16; O2SAT 100
[2023-12-12 08:00] VITALS: BP 130/74; PULSE 83; RESP 16; TEMP 97.6; O2SAT 100
[2023-12-12 19:36] VITALS: RESP 18; O2SAT 98
[2023-12-12 19:53] VITALS: BP 146/81; PULSE 91; RESP 18; TEMP 97.2; O2SAT 98
[2023-12-13 07:00] VITALS: RESP 12; O2SAT 98
[2023-12-13 08:00] VITALS: BP 143/90; PULSE 89; RESP 12; TEMP 97.6; O2SAT 98
[2023-12-13 19:13] VITALS: BP 140/87; PULSE 103; RESP 14; TEMP 98.2; O2SAT 98
[2023-12-13 19:14] VITALS: BP 140/87; PULSE 103; RESP 12; TEMP 98.2; O2SAT 98
[2023-12-13 19:43] VITALS: RESP 14; O2SAT 98
[2023-12-14 07:00] VITALS: BP 130/84; PULSE 88; RESP 16; TEMP 97.5; O2SAT 99
[2023-12-14 19:00] VITALS: RESP 18; O2SAT 99
[2023-12-14 19:14] VITALS: BP 130/93; PULSE 104; RESP 18; TEMP 98.6; O2SAT 99
[2023-12-15 07:00] VITALS: BP 134/92; PULSE 86; RESP 16; TEMP 97.4; O2SAT 100
[2023-12-15 19:00] VITALS: RESP 20; O2SAT 100
[2023-12-15 20:00] VITALS: BP 145/90; PULSE 100; RESP 20; TEMP 97.6; O2SAT 100
[2023-12-16 07:00] VITALS: RESP 16; O2SAT 98
[2023-12-16 07:30] VITALS: BP 134/78; PULSE 92; RESP 16; TEMP 97.9; O2SAT 98
[2023-12-16 19:00] VITALS: RESP 16; O2SAT 97
[2023-12-16 20:00] VITALS: BP 118/80; PULSE 114; RESP 16; TEMP 98.2; O2SAT 97
[2023-12-17 07:00] VITALS: RESP 18; O2SAT 99
[2023-12-17 07:30] VITALS: BP 139/91; PULSE 88; RESP 18; TEMP 97.7; O2SAT 99
[2023-12-17] MEDS: venlafaxine XR 75mg capsule (Q24H) PO SCH (07:34)
[2023-12-17 19:00] VITALS: RESP 18; O2SAT 97
[2023-12-17 19:03] VITALS: BP 145/95; PULSE 111; RESP 18; TEMP 97.6; O2SAT 97
[2023-12-18 07:00] VITALS: BP 127/89; PULSE 120; RESP 16; TEMP 97.8; O2SAT 99
[2023-12-18 19:13] VITALS: BP 130/82; PULSE 108; RESP 19; TEMP 97.6; O2SAT 98
[2023-12-18 19:44] VITALS: RESP 18; O2SAT 97
[2023-12-19 07:00] VITALS: RESP 16; O2SAT 98
[2023-12-19 08:28] VITALS: BP 141/90; PULSE 91; RESP 16; TEMP 97.9; O2SAT 98
[2023-12-19 19:00] VITALS: RESP 20; O2SAT 98
[2023-12-19 19:08] VITALS: BP 151/91; PULSE 103; RESP 20; TEMP 98.5; O2SAT 98
[2023-12-20 07:16] VITALS: RESP 16; O2SAT 98
[2023-12-20 08:12] VITALS: BP 152/94; PULSE 90; RESP 16; TEMP 98.4; O2SAT 98
[2023-12-20 19:37] VITALS: RESP 16; O2SAT 99
[2023-12-20 19:50] VITALS: BP 123/83; PULSE 64; RESP 15; TEMP 97.9; O2SAT 99
[2023-12-21 07:00] VITALS: RESP 12; O2SAT 100
[2023-12-21 08:00] VITALS: BP 106/57; PULSE 82; RESP 12; TEMP 97.5; O2SAT 100
[2023-12-21 19:15] VITALS: RESP 20; O2SAT 97
[2023-12-21 20:00] VITALS: BP 159/82; PULSE 99; RESP 15; TEMP 97.6; O2SAT 97
[2023-12-22 07:00] VITALS: RESP 18; O2SAT 99
[2023-12-22 07:30] VITALS: BP 127/87; PULSE 104; RESP 18; TEMP 98; O2SAT 99
[2023-12-22 19:25] VITALS: BP 123/80; PULSE 98; RESP 18; TEMP 98.7; O2SAT 97
[2023-12-22 19:56] VITALS: RESP 18; O2SAT 97
[2023-12-23 07:00] VITALS: RESP 16; O2SAT 99
[2023-12-23 07:54] VITALS: BP 122/85; PULSE 114; RESP 16; TEMP 97.6; O2SAT 99
[2023-12-23 19:03] VITALS: BP 131/83; PULSE 89; RESP 16; TEMP 98.1; O2SAT 99
[2023-12-24 07:00] VITALS: RESP 18; O2SAT 99
[2023-12-24 08:00] VITALS: BP 136/91; PULSE 91; RESP 18; TEMP 97.8; O2SAT 99
[2023-12-24 19:30] VITALS: BP 126/83; PULSE 96; RESP 17; TEMP 98.2; O2SAT 97
[2023-12-25 07:00] VITALS: RESP 16; O2SAT 97
[2023-12-25 08:00] VITALS: BP 121/77; PULSE 64; RESP 14; TEMP 98.7; O2SAT 99
[2023-12-25 19:22] VITALS: RESP 16; O2SAT 98
[2023-12-25 19:44] VITALS: BP 117/80; PULSE 104; RESP 16; TEMP 98.1; O2SAT 98
[2023-12-26 07:00] VITALS: RESP 18; O2SAT 98
[2023-12-26 07:30] VITALS: BP 123/82; PULSE 108; RESP 18; TEMP 97.7; O2SAT 98
[2023-12-26 19:14] VITALS: RESP 16; O2SAT 97
[2023-12-26 20:28] VITALS: BP 133/81; PULSE 99; RESP 16; TEMP 97.8; O2SAT 97
[2023-12-27 07:00] VITALS: RESP 18; O2SAT 98
[2023-12-27 08:00] VITALS: BP 132/82; PULSE 104; RESP 18; TEMP 97.7; O2SAT 98
[2023-12-27 15:38] LABS: BASOPHILS # (AUTO) 0.1 X10'3 (0-0.2); BASOPHILS % (AUTO) 0.7 % (0-1); EOSINOPHILS # (AUTO) 0.1 X10'3 (0-0.9); EOSINOPHILS % (AUTO) 1.3 % (0-6); HEMATOCRIT 39.5 % (42.0-52.0); HEMOGLOBIN 13.1 g/dl (14.0-17.9); LYMPHOCYTES # (AUTO) 1.8 X10'3 (1.1-4.8); LYMPHOCYTES % (AUTO) 24.8 % (21-51); MEAN CORPUSCULAR HEMOGLOBIN 30.3 PG (27.0-31.0); MEAN CORPUSCULAR HGB CONC 33.2 g/dL (33.0-36.5); MEAN CORPUSCULAR VOLUME 91.1 FL (78-98); MEAN PLATELET VOLUME 6.5 FL (7.4-10.4); MONOCYTES # (AUTO) 0.5 X10'3 (0-0.9); MONOCYTES % (AUTO) 7.1 % (2-12); NEUTROPHILS # (AUTO) 4.8 X10'3 (1.8-7.7); NEUTROPHILS % (AUTO) 66.1 % (42-75); PLATELET COUNT 325 X10'3 (140-440); RED BLOOD COUNT 4.34 X10'6 (4.70-6.10); WHITE BLOOD COUNT 7.2 X10'3 (4.5-11.0)
[2023-12-27 15:54] LABS: D-DIMER 0.26 MG/L FEU (0-0.50)
[2023-12-27 15:57] LABS: ALANINE AMINOTRANSFERASE 24 U/L (12-78); ALBUMIN 3.2 G/DL (3.4-5.0); ALBUMIN/GLOBULIN RATIO 0.8 (1.1-1.5); ALKALINE PHOSPHATASE 121 IU/L (46-116); ANION GAP 8 (8-16); ASPARTATE AMINO TRANSFERASE 15 U/L (10-37); BILIRUBIN,TOTAL 0.3 MG/DL (0.1-1.0); BLOOD UREA NITROGEN 12 MG/DL (7-18); BUN/CREATININE RATIO 17.4 (10.0-20.0); CALCIUM 8.6 MG/DL (8.5-10.1); CHLORIDE 106 MMOL/L (99-107); CREATININE 0.69 MG/DL (0.60-1.10); GLUCOSE 111 MG/DL (70-104); POTASSIUM 4.3 MMOL/L (3.5-5.1); SODIUM 140 MMOL/L (135-145); TOTAL CARBON DIOXIDE 25.6 MMOL/L (24-32); TOTAL PROTEIN 7.1 G/DL (6.4-8.2); eCRCL 153 ML/MIN; eGFR > 90 ML/MIN
[2023-12-27 19:54] VITALS: BP 131/89; PULSE 93; RESP 18; TEMP 97.3; O2SAT 97
[2023-12-28 07:00] VITALS: BP 132/92; PULSE 95; RESP 16; TEMP 97; O2SAT 99
[2023-12-28 19:25] VITALS: BP 132/86; PULSE 94; RESP 17; TEMP 97.5; O2SAT 97
[2023-12-29 07:00] VITALS: BP 135/76; PULSE 89; RESP 16; TEMP 97.8; O2SAT 96
[2023-12-29 19:00] VITALS: BP 133/89; PULSE 108; RESP 14; TEMP 97.1; O2SAT 97
[2023-12-30 07:00] VITALS: BP 121/77; PULSE 100; RESP 12; TEMP 98.2; O2SAT 100
[2023-12-30 19:00] VITALS: RESP 16; O2SAT 92
[2023-12-30 20:33] VITALS: BP 124/84; PULSE 101; RESP 16; TEMP 97.7; O2SAT 92
[2023-12-31 07:00] VITALS: RESP 12; O2SAT 99
[2023-12-31 08:00] VITALS: BP 117/88; PULSE 79; RESP 12; TEMP 97.5; O2SAT 99
[2023-12-31 19:00] VITALS: RESP 18; O2SAT 100
[2023-12-31 19:07] VITALS: BP 134/83; PULSE 94; RESP 18; TEMP 97.9; O2SAT 100
[2024-01-01 07:00] VITALS: BP 112/71; PULSE 79; RESP 16; TEMP 97.7; O2SAT 99
[2024-01-01 20:01] VITALS: BP 124/88; PULSE 79; RESP 16; TEMP 97.9; O2SAT 97
[2024-01-02 07:28] VITALS: BP 107/72; PULSE 66; RESP 12; TEMP 97.6; O2SAT 99
[2024-01-02 19:00] VITALS: RESP 18; O2SAT 97
[2024-01-02 19:41] VITALS: BP 118/91; PULSE 103; RESP 18; TEMP 98.5; O2SAT 97
[2024-01-03 07:00] VITALS: RESP 18; O2SAT 98
[2024-01-03 08:00] VITALS: BP 119/76; PULSE 94; RESP 12; TEMP 97.2; O2SAT 100
[2024-01-03 19:00] VITALS: BP 104/68; PULSE 95; RESP 16; TEMP 98.3; O2SAT 95; O2SAT 98
[2024-01-04 07:00] VITALS: RESP 16; O2SAT 97
[2024-01-04 08:00] VITALS: BP 107/64; PULSE 85; RESP 16; TEMP 98.2; O2SAT 97
[2024-01-04 19:00] VITALS: RESP 16; O2SAT 97
[2024-01-04 20:00] VITALS: BP 113/82; PULSE 102; RESP 16; TEMP 98.5; O2SAT 97
[2024-01-05 07:00] VITALS: RESP 16; O2SAT 97
[2024-01-05 08:48] VITALS: BP 123/78; PULSE 109; RESP 16; TEMP 97.7; O2SAT 99
[2024-01-05 19:41] VITALS: BP 134/88; PULSE 101; RESP 17; TEMP 97.7; O2SAT 97
[2024-01-06 07:01] VITALS: RESP 16; O2SAT 97
[2024-01-06 08:00] VITALS: BP 116/80; PULSE 100; RESP 16; TEMP 97.2; O2SAT 98
[2024-01-06] MEDS ORDERED: VENL75CA61 PO (15:16)
[2024-01-06] MEDS ORDERED: NICO-907 BC (15:16)
[2024-01-06] MEDS ORDERED: OLAN5TAB75 PO ×2 (15:21)
[2024-01-06] MEDS ORDERED: NICOTINE POLACRILEX 2 MG LOZENGE BC PRN (15:50)
[2024-01-06] MEDS ORDERED: OLAN20TA19 PO (16:36)
[2024-01-06] MEDS ORDERED: OLAN2.5T3 PO (16:36)
[2024-01-06] MEDS ORDERED: busPIRone 15mg tablet PO SCH (20:00)
[2024-01-06] MEDS ORDERED: OLANZapine 2.5MG tablet PO SCH (21:00)
[2024-01-07] MEDS ORDERED: nicotine 21mg patch - 24 hr TD SCH (08:00)
[2024-01-07] MEDS ORDERED: OLANZapine 2.5MG tablet PO SCH (12:30)
== END 2024-01-06 15:40 | disposition home or self-care (01) | DRG 750 ==
LOC: ER 16:35 → ED HOLD 11-22 15:26 → ADULT MH 11-22 17:01 → UNDODISIN 12-12 18:14
PROVIDERS: ADMIT Psychiatry & Neurology Psychiatry; ATTEND Psychiatry & Neurology Psychiatry
PROC: GZHZZZZ Group Psychotherapy (ICD-10-PCS; principal; 2023-11-23)
PROC: GZ51ZZZ Individual Psychotherapy, Behavioral (ICD-10-PCS; 2023-11-23)
DX: F20.9 Schizophrenia, unspecified (principal); R45.851 Suicidal ideations; R45.850 Homicidal ideations; S82.832A Other fracture of upper and lower end of left fibula, initial encounter for closed fracture; S22.31XA Fracture of one rib, right side, initial encounter for closed fracture; F17.210 Nicotine dependence, cigarettes, uncomplicated; Z20.822 Contact with and (suspected) exposure to COVID-19; K42.9 Umbilical hernia without obstruction or gangrene; F41.9 Anxiety disorder, unspecified; Z56.0 Unemployment, unspecified; X58.XXXA Exposure to other specified factors, initial encounter; Y93.89 Activity, other specified; Y92.89 Other specified places as the place of occurrence of the external cause; Y99.8 Other external cause status
CPT/HCPCS: 36415; 71045; 73562; 73564; 73700; 80048; 80053; 80061; 80305; 80320; 81001; 83036; 84443; 85025; 85379; 86704; 86705; 87081; 87340; 87811; 93005; 97110; 97161; 99285

== ENCOUNTER 2024-01-06 10:20 | Inpatient (IN) | payer MEDICAID ==
[~2024-01-06] VITALS: Ht 177.8 cm; Wt 128.0 kg
[~2024-01-06 10:20] MED LIST changes: +BUS15T PO; -BUSP10TA11 PO; -CITA20TA16 PO; +CITA40TA16 PO; +LIDO700A47 TOP; -LIDO700A47 TP; -OLAN15TA3 PO; +OLAN15TA35 PO; -TRAZ150T78 PO
[2024-01-06] MEDS ORDERED: NICO-907 BC (15:16)
[2024-01-06] MEDS ORDERED: VENL75CA61 PO (15:16)
[2024-01-06] MEDS ORDERED: OLAN5TAB75 PO ×2 (15:21)
[2024-01-06] MEDS ORDERED: loperamide 2mg capsule PO PRN (16:00)
[2024-01-06] MEDS ORDERED: mag hydrox/Alum hydrox/simeth 30ml oral suspension PO PRN (16:00)
[2024-01-06] MEDS ORDERED: magnesium hydroxide 30ml (MOM) UD suspension PO PRN (16:00)
[2024-01-06] MEDS ORDERED: OLAN20TA19 PO (16:36)
[2024-01-06] MEDS ORDERED: OLAN2.5T3 PO (16:36)
[2024-01-06] MEDS: acetaminophen 325mg tablet PO PRN (17:28)
[2024-01-06 19:30] VITALS: BP 127/86; PULSE 79; RESP 17; TEMP 97.8; O2SAT 97
[2024-01-06] MEDS: olanzapine 10mg tablet PO SCH (20:23)
[2024-01-06] MEDS: busPIRone 15mg tablet PO SCH (20:24)
[2024-01-07] MEDS: CARIPRAZINE 1.5 MG CAPSULE PO SCH (07:53)
[2024-01-07 08:00] VITALS: BP 123/85; PULSE 96; RESP 16; TEMP 97.4; O2SAT 97
[2024-01-07 08:01] LABS: HEMOGLOBIN A1C 5.1 % (4.5-6.2)
[2024-01-07 08:02] LABS: CHOL/HDL RATIO 3.5 (0.00-4.99); CHOLESTEROL 160 MG/DL (0-200); HDL CHOLESTEROL 46 MG/DL (35-60); LDL CHOLESTEROL 97 MG/DL (50-100); TRIGLYCERIDES 105 MG/DL (20-135)
[2024-01-07] MEDS: LIDOcaine 5% patch TP SCH (08:06)
[2024-01-07 08:45] VITALS: RESP 16; O2SAT 97
[2024-01-07] MEDS: OLANZAPINE 5 MG TABLET PO SCH (12:25)
[2024-01-07] MEDS: venlafaxine XR 75mg capsule (Q24H) PO SCH (14:05)
[2024-01-07 19:30] VITALS: BP 112/68; PULSE 98; RESP 16; TEMP 97.7; O2SAT 98
[2024-01-08 07:00] VITALS: RESP 14; O2SAT 96
[2024-01-08 08:00] VITALS: BP 156/90; PULSE 87; RESP 14; TEMP 98.7; O2SAT 96
[2024-01-08] MEDS ORDERED: venlafaxine XR 75mg capsule (Q24H) PO SCH (08:00)
[2024-01-08 20:00] VITALS: BP 130/86; PULSE 93; RESP 16; TEMP 96.9; O2SAT 96
[2024-01-09 07:00] VITALS: RESP 16; O2SAT 97
[2024-01-09 08:27] VITALS: BP 114/82; PULSE 91; RESP 16; TEMP 98.3; O2SAT 97
[2024-01-09] MEDS: acetaminophen 325mg tablet PO PRN (13:12)
[2024-01-09 19:00] VITALS: RESP 18; O2SAT 97
[2024-01-09 19:34] VITALS: BP 138/92; PULSE 94; RESP 18; TEMP 98; O2SAT 97
[2024-01-10 07:00] VITALS: RESP 16; O2SAT 98
[2024-01-10 08:00] VITALS: BP 119/84; PULSE 91; RESP 16; TEMP 97.9; O2SAT 98
[2024-01-10 09:10] VITALS: BP 119/84; PULSE 91; RESP 16; TEMP 97.9; O2SAT 98
[2024-01-10 19:00] VITALS: BP 129/83; PULSE 84; RESP 16; TEMP 97.5; O2SAT 97
[2024-01-11 07:00] VITALS: BP 145/78; PULSE 94; RESP 16; TEMP 98; O2SAT 99
[2024-01-11 19:00] VITALS: RESP 20; O2SAT 98
[2024-01-11 20:34] VITALS: BP 144/87; PULSE 98; RESP 20; TEMP 97.9; O2SAT 97
[2024-01-12 07:00] VITALS: RESP 16; O2SAT 97
[2024-01-12 08:00] VITALS: BP 127/86; PULSE 84; RESP 16; TEMP 97; O2SAT 97
[2024-01-12 19:00] VITALS: RESP 18; O2SAT 97
[2024-01-12 20:00] VITALS: BP 136/84; PULSE 94; RESP 18; TEMP 98; O2SAT 97
[2024-01-13 07:00] VITALS: RESP 16; O2SAT 97
[2024-01-13 08:00] VITALS: BP 162/78; PULSE 85; RESP 16; TEMP 97.2; O2SAT 97
[2024-01-13 19:32] VITALS: BP 118/70; PULSE 88; RESP 16; TEMP 98.1; O2SAT 98
[2024-01-13] MEDS: busPIRone 5mg tablet PO SCH (20:16)
[2024-01-14 07:00] VITALS: RESP 18; O2SAT 96
[2024-01-14 08:00] VITALS: BP 119/72; PULSE 99; RESP 18; TEMP 98; O2SAT 98
[2024-01-14 19:27] VITALS: RESP 16; O2SAT 97
[2024-01-14 20:42] VITALS: BP 126/89; PULSE 92; RESP 16; TEMP 97.4; O2SAT 97
[2024-01-15 07:00] VITALS: RESP 17; O2SAT 99
[2024-01-15 07:30] VITALS: BP 121/76; PULSE 101; RESP 17; TEMP 98.9; O2SAT 99
[2024-01-15 19:00] VITALS: RESP 20; O2SAT 99
[2024-01-15 19:45] VITALS: BP 133/76; PULSE 99; RESP 20; TEMP 97; O2SAT 99
[2024-01-16 07:30] VITALS: BP 120/79; PULSE 94; RESP 18; TEMP 97.7; O2SAT 98
[2024-01-16 07:59] VITALS: RESP 18
[2024-01-16 19:00] VITALS: RESP 16; O2SAT 98
[2024-01-16 19:43] VITALS: BP 135/74; PULSE 85; RESP 16; TEMP 98.4; O2SAT 98
[2024-01-17 07:30] VITALS: BP 111/81; PULSE 90; RESP 16; TEMP 98.5; O2SAT 97
[2024-01-17 07:59] VITALS: RESP 16; O2SAT 97
[2024-01-17 19:00] VITALS: RESP 18; O2SAT 97
[2024-01-17 20:00] VITALS: BP 111/81; PULSE 90; RESP 16; TEMP 98.5; O2SAT 97
[2024-01-18 07:00] VITALS: RESP 16; O2SAT 99
[2024-01-18 08:00] VITALS: BP 113/75; PULSE 88; RESP 16; TEMP 98.4; O2SAT 99
[2024-01-18 10:00] VITALS: BP 113/75; PULSE 88; TEMP 98.5; O2SAT 99
[2024-01-18 19:00] VITALS: BP 123/87; PULSE 90; RESP 18; TEMP 98.2; O2SAT 97
[2024-01-19 07:00] VITALS: BP 120/74; PULSE 90; RESP 17; TEMP 97.5; O2SAT 98
[2024-01-19 19:10] VITALS: RESP 15; O2SAT 98
[2024-01-19 20:00] VITALS: BP 115/67; PULSE 77; RESP 15; TEMP 98.7; O2SAT 98
[2024-01-20 07:00] VITALS: RESP 16; O2SAT 97
[2024-01-20 08:00] VITALS: BP 116/70; PULSE 88; RESP 16; TEMP 98.8; O2SAT 97
[2024-01-20 19:00] VITALS: RESP 16; O2SAT 97
[2024-01-20 19:30] VITALS: BP 121/81; PULSE 96; RESP 16; TEMP 98.8; O2SAT 97
[2024-01-21 07:19] VITALS: BP 122/83; PULSE 104; RESP 16; TEMP 98.6; O2SAT 97
[2024-01-21 08:31] VITALS: RESP 16
[2024-01-21 19:00] VITALS: RESP 22; O2SAT 98
[2024-01-21 19:57] VITALS: BP 120/84; PULSE 102; RESP 22; TEMP 97.4; O2SAT 98
[2024-01-22 07:30] VITALS: BP 127/86; PULSE 102; RESP 16; TEMP 97.4; O2SAT 98
[2024-01-22] MEDS: venlafaxine XR 75mg capsule (Q24H) PO SCH (07:42)
[2024-01-22 07:59] VITALS: RESP 16
[2024-01-22 19:00] VITALS: BP 121/73; PULSE 97; RESP 16; TEMP 97.4; O2SAT 96
[2024-01-23 07:00] VITALS: RESP 18; O2SAT 96
[2024-01-23 08:00] VITALS: BP 118/78; PULSE 100; RESP 18; TEMP 97.9; O2SAT 96
[2024-01-23 19:00] VITALS: BP 118/78; PULSE 101; RESP 14; TEMP 97.4; O2SAT 98
[2024-01-23 19:40] VITALS: RESP 16; O2SAT 98
[2024-01-24 07:00] VITALS: RESP 16; O2SAT 99
[2024-01-24 08:00] VITALS: BP 119/83; PULSE 100; RESP 16; TEMP 98; O2SAT 99
[2024-01-24 19:00] VITALS: RESP 18; O2SAT 96
[2024-01-24 19:50] VITALS: BP 133/87; PULSE 98; RESP 18; TEMP 98.6; O2SAT 96
[2024-01-25 07:30] VITALS: BP 124/73; PULSE 100; RESP 16; TEMP 97.8; O2SAT 98
[2024-01-25 07:55] VITALS: RESP 16
[2024-01-25 19:00] VITALS: BP 131/91; PULSE 100; RESP 16; TEMP 97.6; O2SAT 97
[2024-01-25 19:36] VITALS: RESP 16; O2SAT 97
[2024-01-26 07:31] VITALS: BP 118/88; PULSE 101; RESP 16; TEMP 97.9; O2SAT 96
[2024-01-26 07:39] VITALS: RESP 16
[2024-01-26 19:00] VITALS: RESP 17; O2SAT 97
[2024-01-26 19:01] VITALS: RESP 17; O2SAT 97
[2024-01-26 20:42] VITALS: BP 134/89; PULSE 99; RESP 17; TEMP 97; O2SAT 97
[2024-01-27 07:00] VITALS: RESP 16; O2SAT 99
[2024-01-27 08:00] VITALS: BP 114/64; PULSE 100; RESP 16; TEMP 98.2; O2SAT 99
[2024-01-27 19:34] VITALS: BP 145/92; PULSE 104; RESP 13; TEMP 97.2; O2SAT 95
[2024-01-28 07:00] VITALS: RESP 16; O2SAT 96
[2024-01-28 08:00] VITALS: BP 116/74; PULSE 98; RESP 16; TEMP 97.9; O2SAT 96
[2024-01-28 09:09] VITALS: BP 116/74; PULSE 98; RESP 16; TEMP 97.9; O2SAT 96
[2024-01-28 19:30] VITALS: RESP 15; O2SAT 98
[2024-01-28 20:00] VITALS: BP 126/68; PULSE 101; RESP 15; TEMP 98.4; O2SAT 98
[2024-01-29 07:00] VITALS: RESP 16; O2SAT 97
[2024-01-29 08:00] VITALS: BP 111/81; PULSE 104; RESP 16; TEMP 98.3; O2SAT 97
[2024-01-29 19:54] VITALS: BP 128/86; PULSE 99; RESP 14; TEMP 97.9; O2SAT 96
[2024-01-30 07:00] VITALS: RESP 16; O2SAT 99
[2024-01-30 08:00] VITALS: BP 117/69; PULSE 88; RESP 16; TEMP 98.7; O2SAT 99
[2024-01-30 19:54] VITALS: BP 109/62; PULSE 78; RESP 16; TEMP 98.1; O2SAT 95
[2024-01-31 07:00] VITALS: RESP 16; O2SAT 94
[2024-01-31 08:00] VITALS: BP 134/88; PULSE 110; RESP 16; TEMP 98.2; O2SAT 94
[2024-01-31 19:00] VITALS: BP 116/88; PULSE 103; RESP 18; TEMP 98; O2SAT 95
[2024-02-01 07:00] VITALS: BP 132/89; PULSE 104; RESP 16; TEMP 97.8; O2SAT 94
[2024-02-01 19:00] VITALS: BP 136/87; PULSE 113; RESP 18; TEMP 98.1; O2SAT 95
[2024-02-02 07:00] VITALS: BP 145/86; PULSE 104; RESP 16; TEMP 98.1; O2SAT 98
[2024-02-02 19:05] VITALS: RESP 18; O2SAT 95
[2024-02-02 19:08] VITALS: BP 135/87; PULSE 104; RESP 18; TEMP 97.9; O2SAT 95
[2024-02-03 07:00] VITALS: RESP 16; O2SAT 97
[2024-02-03 07:30] VITALS: BP 122/93; PULSE 118; RESP 16; TEMP 97.7; O2SAT 97
[2024-02-03 19:00] VITALS: RESP 18; O2SAT 96
[2024-02-03 20:39] VITALS: BP 148/93; PULSE 106; RESP 18; TEMP 97; O2SAT 96
[2024-02-04 07:00] VITALS: RESP 16; O2SAT 100
[2024-02-04 07:14] VITALS: BP 142/89; PULSE 73; RESP 16; TEMP 97.8; O2SAT 100
[2024-02-04 19:07] VITALS: RESP 16; O2SAT 97
[2024-02-04 19:28] VITALS: BP 122/76; PULSE 88; RESP 16; TEMP 97.5; O2SAT 97
[2024-02-05 07:00] VITALS: RESP 16; O2SAT 98
[2024-02-05 08:25] VITALS: BP 120/76; PULSE 81; RESP 16; TEMP 98.1; O2SAT 98
[2024-02-05 19:41] VITALS: BP 133/97; PULSE 105; RESP 14; TEMP 97.5; O2SAT 96
[2024-02-06 07:00] VITALS: BP 118/71; PULSE 79; RESP 16; TEMP 97.9; O2SAT 96
[2024-02-06 19:12] VITALS: BP 137/81; PULSE 102; RESP 22; TEMP 97.8; O2SAT 97
[2024-02-07 07:00] VITALS: BP 110/71; PULSE 98; RESP 16; TEMP 97.2; O2SAT 98
[2024-02-07 19:00] VITALS: RESP 16; O2SAT 98
[2024-02-07 19:02] VITALS: BP 120/78; PULSE 90; RESP 16; TEMP 97.3; O2SAT 98
[2024-02-08 07:00] VITALS: RESP 16; O2SAT 98
[2024-02-08 08:00] VITALS: BP 107/53; PULSE 89; RESP 16; TEMP 96.9; O2SAT 98
[2024-02-08 19:00] VITALS: RESP 12; O2SAT 95
[2024-02-08 20:00] VITALS: BP 119/83; PULSE 100; RESP 12; TEMP 97.5; O2SAT 95
[2024-02-09 07:00] VITALS: BP 114/71; PULSE 89; RESP 16; TEMP 98; O2SAT 96
[2024-02-09 07:25] VITALS: RESP 16; O2SAT 96
[2024-02-09 19:00] VITALS: RESP 18; O2SAT 97
[2024-02-09 20:00] VITALS: BP 113/83; PULSE 109; RESP 18; TEMP 97.8; O2SAT 97
[2024-02-10 07:00] VITALS: RESP 18; O2SAT 98
[2024-02-10 07:30] VITALS: BP 111/70; PULSE 101; RESP 18; TEMP 97.1; O2SAT 98
[2024-02-10 19:00] VITALS: RESP 16; O2SAT 96
[2024-02-10 19:12] VITALS: BP 137/91; PULSE 97; RESP 16; TEMP 97.8; O2SAT 96
[2024-02-11 07:00] VITALS: RESP 14; O2SAT 98
[2024-02-11 08:33] VITALS: BP 112/69; PULSE 91; RESP 14; TEMP 97.2; O2SAT 98
[2024-02-11 19:00] VITALS: RESP 16; O2SAT 99
[2024-02-11 19:10] VITALS: BP 130/86; PULSE 101; RESP 16; TEMP 98; O2SAT 99
[2024-02-12 07:00] VITALS: RESP 16; O2SAT 98
[2024-02-12 07:16] VITALS: BP 110/57; PULSE 82; RESP 16; TEMP 97.1; O2SAT 98
[2024-02-12 19:00] VITALS: BP 117/81; PULSE 102; RESP 18; TEMP 97.5; O2SAT 97
[2024-02-13 07:00] VITALS: RESP 16; O2SAT 99
[2024-02-13 08:00] VITALS: BP 107/63; PULSE 90; RESP 16; TEMP 97.8; O2SAT 99
[2024-02-13 19:55] VITALS: RESP 18; O2SAT 96
[2024-02-13 19:56] VITALS: BP 134/81; PULSE 102; RESP 18; TEMP 97.9; O2SAT 96
[2024-02-14 07:00] VITALS: RESP 16; O2SAT 99
[2024-02-14 07:30] VITALS: BP 101/64; PULSE 86; RESP 16; TEMP 98.1; O2SAT 99
[2024-02-14 19:00] VITALS: RESP 18; O2SAT 97
[2024-02-14 19:12] VITALS: BP 129/87; PULSE 97; RESP 18; TEMP 97.6; O2SAT 97
[2024-02-15 07:00] VITALS: RESP 16; O2SAT 98
[2024-02-15 07:30] VITALS: BP 112/73; PULSE 86; RESP 16; TEMP 98.5; O2SAT 98
[2024-02-15 19:00] VITALS: RESP 15; O2SAT 99
[2024-02-15 19:24] VITALS: BP 131/89; PULSE 95; RESP 15; TEMP 97.3; O2SAT 99
[2024-02-16 07:00] VITALS: RESP 16; O2SAT 98
[2024-02-16 07:30] VITALS: BP 124/79; PULSE 88; RESP 16; TEMP 97.9; O2SAT 98
[2024-02-16] MEDS: acetaminophen 325mg tablet PO PRN (18:40)
[2024-02-16 19:12] VITALS: BP 117/88; PULSE 101; RESP 20; TEMP 97.8; O2SAT 96
[2024-02-16 19:43] VITALS: RESP 20; O2SAT 96
[2024-02-17 06:52] VITALS: BP 109/69; PULSE 82; RESP 16; TEMP 97; O2SAT 95
[2024-02-17 07:12] VITALS: BP 109/69; PULSE 82; RESP 16; TEMP 97; O2SAT 95
[2024-02-17 19:03] VITALS: BP 120/80; PULSE 98; RESP 20; TEMP 98; O2SAT 97
[2024-02-18 07:00] VITALS: RESP 14; O2SAT 97
[2024-02-18 07:07] VITALS: BP 120/78; PULSE 88; RESP 14; TEMP 98; O2SAT 97
[2024-02-18 19:04] VITALS: RESP 16; O2SAT 97
[2024-02-18 19:08] VITALS: BP 115/85; PULSE 109; RESP 16; TEMP 97.6; O2SAT 97
[2024-02-19 08:00] VITALS: BP 111/76; PULSE 95; RESP 18; TEMP 96.9; O2SAT 100
[2024-02-19 19:00] VITALS: BP 116/84; PULSE 65; RESP 18; TEMP 98.2; O2SAT 97
[2024-02-20 08:05] VITALS: BP 111/64; PULSE 84; RESP 16; TEMP 98.6; O2SAT 97
[2024-02-20 19:00] VITALS: RESP 18; O2SAT 97
[2024-02-20 20:10] VITALS: BP 122/73; PULSE 93; RESP 18; TEMP 96.9; O2SAT 97
[2024-02-21 07:30] VITALS: BP 110/66; PULSE 84; RESP 16; TEMP 97.4; O2SAT 98
[2024-02-21 19:00] VITALS: RESP 16; O2SAT 97
[2024-02-21 19:32] VITALS: BP 132/87; PULSE 95; RESP 16; TEMP 97.9; O2SAT 97
[2024-02-22 07:30] VITALS: BP 119/72; PULSE 94; RESP 15; TEMP 97.1; O2SAT 97
[2024-02-22 19:00] VITALS: RESP 16; O2SAT 98
[2024-02-22] MEDS ORDERED: docusate sod 100mg capsule PO SCH (20:00)
[2024-02-22 20:03] VITALS: BP 105/54; PULSE 106; RESP 16; TEMP 97.7; O2SAT 98
[2024-02-23 07:00] VITALS: RESP 16; O2SAT 98
[2024-02-23 07:03] VITALS: BP 103/61; PULSE 90; RESP 16; TEMP 97.2; O2SAT 98
[2024-02-23 19:00] VITALS: RESP 18; O2SAT 96
[2024-02-23 20:00] VITALS: BP 116/74; PULSE 102; RESP 18; TEMP 98.1; O2SAT 96
[2024-02-24 07:22] VITALS: RESP 16; O2SAT 98
[2024-02-24 08:00] VITALS: BP 121/67; PULSE 90; RESP 14; TEMP 97.2; O2SAT 98
[2024-02-24 19:00] VITALS: BP 132/95; PULSE 101; RESP 20; TEMP 97.1; O2SAT 97
[2024-02-25 07:17] VITALS: BP 107/68; PULSE 89; RESP 14; TEMP 97.7; O2SAT 97
[2024-02-25] MEDS: venlafaxine XR 75mg capsule (Q24H) PO SCH (08:21)
[2024-02-25 19:00] VITALS: BP 125/62; PULSE 86; RESP 14; TEMP 97.4; O2SAT 97
[2024-02-25 19:30] VITALS: RESP 14; O2SAT 97
[2024-02-26 07:00] VITALS: RESP 16; O2SAT 99
[2024-02-26 07:04] VITALS: BP 109/68; PULSE 86; RESP 16; TEMP 97.3; O2SAT 99
[2024-02-26 19:22] VITALS: RESP 16; O2SAT 96
[2024-02-26 19:24] VITALS: BP 134/86; PULSE 106; RESP 16; TEMP 97.5; O2SAT 96
[2024-02-27 07:33] VITALS: BP 116/55; PULSE 83; RESP 16; TEMP 97.9; O2SAT 99
[2024-02-27 18:54] VITALS: BP 114/76; PULSE 95; RESP 16; TEMP 97.9; O2SAT 96
[2024-02-27 19:01] VITALS: BP 114/76; PULSE 95; RESP 16; TEMP 97.9; O2SAT 96
[2024-02-27 19:17] VITALS: RESP 16; O2SAT 96
[2024-02-28 08:00] VITALS: BP 104/64; PULSE 87; RESP 16; TEMP 98.1; O2SAT 98
[2024-02-28 19:00] VITALS: BP 112/77; PULSE 97; RESP 16; TEMP 97.3; O2SAT 96
[2024-02-29 07:00] VITALS: RESP 16; O2SAT 100
[2024-02-29 08:00] VITALS: BP 130/70; PULSE 92; RESP 16; TEMP 98.2; O2SAT 100
[2024-02-29 19:00] VITALS: BP 130/82; PULSE 100; RESP 18; TEMP 97.5; O2SAT 96
[2024-03-01 07:00] VITALS: RESP 16; O2SAT 99
[2024-03-01 07:30] VITALS: BP 108/75; PULSE 81; RESP 16; TEMP 97.2; O2SAT 99
[2024-03-01 19:00] VITALS: RESP 16; O2SAT 97
[2024-03-01 19:40] VITALS: BP 115/79; PULSE 103; RESP 16; TEMP 98.7; O2SAT 97
[2024-03-02 07:00] VITALS: RESP 15; O2SAT 98
[2024-03-02 07:30] VITALS: BP 114/70; PULSE 94; RESP 15; TEMP 97.2; O2SAT 98
[2024-03-02 19:30] VITALS: BP 138/95; PULSE 112; RESP 20; TEMP 97.3; O2SAT 97
[2024-03-02 22:00] VITALS: PULSE 92
[2024-03-03 07:30] VITALS: BP 89/49; PULSE 81; RESP 16; TEMP 98.1; O2SAT 96
[2024-03-03 08:16] VITALS: BP 114/67
[2024-03-03 19:00] VITALS: BP 114/87; PULSE 109; RESP 16; TEMP 98.5; O2SAT 95
[2024-03-04 08:00] VITALS: BP 116/76; PULSE 88; RESP 16; TEMP 97.1; O2SAT 96
[2024-03-04 09:06] VITALS: BP 116/76; PULSE 88; RESP 16; TEMP 97.1; O2SAT 96
[2024-03-04 19:18] VITALS: BP 126/78; PULSE 102; RESP 16; TEMP 98; O2SAT 96
[2024-03-05 07:30] VITALS: BP 99/75; PULSE 83; RESP 18; TEMP 97.7; O2SAT 97
[2024-03-05 19:26] VITALS: BP 138/102; PULSE 107; RESP 18; TEMP 97; O2SAT 97
[2024-03-06 07:00] VITALS: RESP 15; O2SAT 97
[2024-03-06 08:00] VITALS: BP 98/58; PULSE 89; RESP 15; TEMP 98.1; O2SAT 97
[2024-03-06 19:00] VITALS: RESP 18; O2SAT 98
[2024-03-06 20:49] VITALS: BP 131/87; PULSE 99; RESP 18; TEMP 98; O2SAT 98
[2024-03-07 07:00] VITALS: RESP 16; O2SAT 98
[2024-03-07 08:00] VITALS: BP 120/81; PULSE 84; RESP 16; TEMP 97.3; O2SAT 98
[2024-03-07 20:00] VITALS: BP 148/83; PULSE 101; RESP 18; TEMP 98; O2SAT 98
[2024-03-08 07:00] VITALS: RESP 18; O2SAT 97
[2024-03-08 07:30] VITALS: BP 113/75; PULSE 91; RESP 18; TEMP 97.3; O2SAT 97
[2024-03-08 19:00] VITALS: RESP 20; O2SAT 97
[2024-03-08 19:09] VITALS: BP 122/84; PULSE 110; RESP 20; TEMP 97.6; O2SAT 97
[2024-03-09 07:00] VITALS: RESP 16; O2SAT 97
[2024-03-09 08:00] VITALS: BP 130/75; PULSE 95; RESP 17; TEMP 97.2; O2SAT 97
[2024-03-09 19:00] VITALS: BP 144/98; PULSE 95; RESP 22; TEMP 97.3; O2SAT 97
[2024-03-09 19:05] VITALS: RESP 22; O2SAT 97
[2024-03-10 07:00] VITALS: RESP 16; O2SAT 97
[2024-03-10 08:00] VITALS: BP 108/71; PULSE 92; RESP 16; TEMP 98; O2SAT 97
[2024-03-10 19:00] VITALS: BP 143/86; PULSE 107; RESP 15; TEMP 97.4; O2SAT 96
[2024-03-11 07:00] VITALS: RESP 16; O2SAT 98
[2024-03-11 08:00] VITALS: BP 119/73; PULSE 100; RESP 16; TEMP 97.7; O2SAT 98
[2024-03-11 19:49] VITALS: BP 96/54; PULSE 97; RESP 14; TEMP 97.3; O2SAT 97
[2024-03-12 07:00] VITALS: RESP 16; O2SAT 98
[2024-03-12 08:00] VITALS: BP 112/72; PULSE 90; RESP 16; TEMP 97.9; O2SAT 98
[2024-03-12 19:30] VITALS: RESP 18; O2SAT 96
[2024-03-12 19:45] VITALS: BP 141/86; PULSE 118; RESP 18; TEMP 98; O2SAT 96
[2024-03-13 00:30] VITALS: PULSE 93
[2024-03-13 07:00] VITALS: RESP 16; O2SAT 98
[2024-03-13 07:30] VITALS: BP 111/63; PULSE 88; RESP 16; TEMP 97.5; O2SAT 98
[2024-03-13 19:31] VITALS: BP 129/94; PULSE 100; RESP 16; TEMP 98.2; O2SAT 96
[2024-03-14 07:00] VITALS: RESP 12; O2SAT 98
[2024-03-14 08:00] VITALS: BP 118/72; PULSE 82; RESP 12; TEMP 98.1; O2SAT 98
[2024-03-14 19:00] VITALS: RESP 18; O2SAT 96
[2024-03-14 19:05] VITALS: BP 132/83; PULSE 105; RESP 18; TEMP 97.7; O2SAT 96
[2024-03-15 07:20] VITALS: BP 142/74; PULSE 72; RESP 12; TEMP 98.2; O2SAT 97
[2024-03-15 09:26] VITALS: RESP 12; O2SAT 97
[2024-03-15 18:59] VITALS: BP 125/88; PULSE 102; RESP 22; TEMP 97.3; O2SAT 98
[2024-03-15 19:00] VITALS: RESP 22; O2SAT 98
[2024-03-15 20:00] VITALS: BP 125/88; PULSE 102; RESP 22; TEMP 97.3; O2SAT 98
[2024-03-16 07:00] VITALS: RESP 16; O2SAT 97
[2024-03-16 07:30] VITALS: BP 114/73; PULSE 86; RESP 16; TEMP 97.5; O2SAT 97
[2024-03-16 19:00] VITALS: RESP 20; O2SAT 99
[2024-03-16 19:10] VITALS: BP 144/89; PULSE 111; RESP 20; TEMP 97.8; O2SAT 99
[2024-03-17 07:30] VITALS: BP 111/73; PULSE 92; RESP 16; TEMP 97.9; O2SAT 98
[2024-03-17 19:30] VITALS: BP 120/71; PULSE 99; RESP 18; TEMP 97; O2SAT 100
[2024-03-18 07:00] VITALS: RESP 14; O2SAT 96
[2024-03-18 08:00] VITALS: BP 110/68; PULSE 78; RESP 14; TEMP 98.6; O2SAT 96
[2024-03-18 19:30] VITALS: RESP 18; O2SAT 97
[2024-03-18 20:16] VITALS: BP 114/84; PULSE 109; RESP 18; TEMP 98.9; O2SAT 97
[2024-03-19 07:00] VITALS: RESP 16; O2SAT 97
[2024-03-19 08:00] VITALS: BP 106/69; PULSE 79; RESP 16; TEMP 97.9; O2SAT 97
[2024-03-19 19:23] VITALS: BP 131/89; PULSE 112; RESP 18; TEMP 97.6; O2SAT 97
[2024-03-19 19:30] VITALS: RESP 18; O2SAT 97
[2024-03-19 22:57] VITALS: PULSE 80
[2024-03-20 07:00] VITALS: RESP 16; O2SAT 97
[2024-03-20 07:47] VITALS: BP 106/63; PULSE 82; RESP 16; TEMP 98.2; O2SAT 97
[2024-03-20 19:15] VITALS: BP 101/62; PULSE 79; RESP 16; TEMP 98.3; O2SAT 96
[2024-03-21 07:30] VITALS: BP 104/67; PULSE 88; RESP 12; TEMP 97.6; O2SAT 98
[2024-03-21 19:22] VITALS: BP 138/93; PULSE 107; RESP 16; TEMP 98.3; O2SAT 99
[2024-03-22 08:56] VITALS: BP 106/55; PULSE 74; RESP 15; TEMP 97.5; O2SAT 95
[2024-03-22] MEDS: ibuprofen tablet 400 MG TABLET PO SCH (16:54)
[2024-03-22 19:07] VITALS: BP 120/91; PULSE 104; RESP 20; TEMP 97.6; O2SAT 100
[2024-03-23 07:30] VITALS: BP 106/54; PULSE 80; RESP 12; TEMP 97.4; O2SAT 98
[2024-03-23 19:00] VITALS: RESP 18; O2SAT 98
[2024-03-23 19:45] VITALS: BP 122/75; PULSE 99; RESP 18; TEMP 97.4; O2SAT 98
[2024-03-24 06:45] LABS: BASOPHILS % (AUTO) 0.4 % (0-1); EOSINOPHILS # (AUTO) 0.1 X10'3 (0-0.9); EOSINOPHILS % (AUTO) 1.7 % (0-6); HEMATOCRIT 42.9 % (42.0-52.0); HEMOGLOBIN 14.3 g/dl (14.0-17.9); LYMPHOCYTES # (AUTO) 1.9 X10'3 (1.1-4.8); LYMPHOCYTES % (AUTO) 29.6 % (21-51); MEAN CORPUSCULAR HEMOGLOBIN 28.7 PG (27.0-31.0); MEAN CORPUSCULAR HGB CONC 33.4 g/dL (33.0-36.5); MEAN PLATELET VOLUME 6.7 FL (7.4-10.4); MONOCYTES # (AUTO) 0.6 X10'3 (0-0.9); MONOCYTES % (AUTO) 9.3 % (2-12); NEUTROPHILS # (AUTO) 3.8 X10'3 (1.8-7.7); PLATELET COUNT 289 X10'3 (140-440); RED BLOOD COUNT 4.98 X10'6 (4.70-6.10); RED CELL DISTRIBUTION WIDTH 14.3 % (11.5-14.5); WHITE BLOOD COUNT 6.4 X10'3 (4.5-11.0)
[2024-03-24 07:17] VITALS: BP 124/72; PULSE 86; RESP 16; TEMP 97.3; O2SAT 99
[2024-03-24 07:18] LABS: ALBUMIN 3.4 G/DL (3.4-5.0); ANION GAP 8 (8-16); BLOOD UREA NITROGEN 15 MG/DL (7-18); BUN/CREATININE RATIO 23.4 (10.0-20.0); CALCIUM 8.8 MG/DL (8.5-10.1); CHLORIDE 107 MMOL/L (99-107); CREATININE 0.64 MG/DL (0.60-1.10); GLUCOSE 105 MG/DL (70-104); POTASSIUM 4.5 MMOL/L (3.5-5.1); SODIUM 140 MMOL/L (135-145); eCRCL 160 ML/MIN; eGFR > 90 ML/MIN
[2024-03-24 19:00] VITALS: RESP 20; O2SAT 97
[2024-03-24 19:15] VITALS: BP 143/82; PULSE 96; RESP 20; TEMP 97; O2SAT 97
[2024-03-25 07:09] VITALS: BP 111/71; PULSE 83; RESP 17; TEMP 97.2; O2SAT 98
[2024-03-25 07:59] VITALS: RESP 17; O2SAT 98
[2024-03-25 19:00] VITALS: RESP 17; O2SAT 98
[2024-03-25 19:13] VITALS: BP 129/83; PULSE 98; RESP 18; TEMP 97.9; O2SAT 98
[2024-03-26 07:16] VITALS: BP 118/70; PULSE 85; RESP 16; TEMP 98; O2SAT 96
[2024-03-26 08:15] VITALS: RESP 16; O2SAT 96
[2024-03-26 19:00] VITALS: BP 128/78; PULSE 100; RESP 16; TEMP 98; O2SAT 96; O2SAT 98
[2024-03-27 07:14] VITALS: BP 119/71; PULSE 98; RESP 18; TEMP 97.8; O2SAT 96
[2024-03-27 08:45] VITALS: RESP 16
[2024-03-27] MEDS: tuberculin, purif. prot. deriv. 5 units/0.1ml ID ONE (17:49)
[2024-03-27 19:00] VITALS: BP 116/82; PULSE 104; RESP 16; TEMP 97.7; O2SAT 96
[2024-03-28 07:00] VITALS: RESP 16; O2SAT 98
[2024-03-28 07:30] VITALS: BP 115/81; PULSE 85; RESP 16; TEMP 97.6; O2SAT 98
[2024-03-28 19:00] VITALS: RESP 14; O2SAT 98
[2024-03-28 19:33] VITALS: BP 121/93; PULSE 101; RESP 14; TEMP 97.4; O2SAT 98
[2024-03-29 07:00] VITALS: BP 128/76; PULSE 78; RESP 16; TEMP 98.5; O2SAT 98
[2024-03-29 19:00] VITALS: RESP 20; O2SAT 96
[2024-03-29 20:00] VITALS: BP 105/75; PULSE 86; RESP 20; TEMP 97.6; O2SAT 96
[2024-03-29 22:00] VITALS: BP 105/75; PULSE 86; RESP 20; TEMP 97.6; O2SAT 96
[2024-03-30 07:00] VITALS: RESP 14; O2SAT 97
[2024-03-30 08:00] VITALS: BP 88/57; PULSE 76; RESP 14; TEMP 98.3; O2SAT 97
[2024-03-30 19:00] VITALS: RESP 16; O2SAT 97
[2024-03-30 20:00] VITALS: BP 129/75; PULSE 98; RESP 16; TEMP 97; O2SAT 97
[2024-03-31 07:29] VITALS: BP 110/70; PULSE 83; RESP 14; TEMP 97.7; O2SAT 96
[2024-03-31 19:05] VITALS: RESP 22; O2SAT 98
[2024-03-31 19:10] VITALS: BP 143/86; PULSE 95; RESP 22; TEMP 97.8; O2SAT 98
[2024-04-01 07:30] VITALS: BP 109/85; PULSE 78; RESP 16; TEMP 98.4; O2SAT 95
[2024-04-01 19:22] VITALS: BP 122/88; PULSE 108; RESP 18; TEMP 98.2; O2SAT 95
[2024-04-02 07:45] VITALS: BP 97/55; PULSE 81; RESP 14; TEMP 98.5; O2SAT 95
[2024-04-02 10:00] VITALS: RESP 14; O2SAT 95
[2024-04-02] MEDS ORDERED: LIDO700A47 TOP (17:19)
[2024-04-02] MEDS ORDERED: IBUP-1984 PO (17:19)
[2024-04-02] MEDS ORDERED: BUSP-28 PO (17:19)
[2024-04-02] MEDS ORDERED: NICO-907 BC (17:19)
[2024-04-02] MEDS ORDERED: VENL150T3 PO (17:19)
[2024-04-02] MEDS ORDERED: CARI6CAP PO (17:19)
[2024-04-02] MEDS ORDERED: NICO-687 TD (17:19)
[2024-04-02] MEDS ORDERED: OLAN10TA73 PO (17:22)
[2024-04-02 19:00] VITALS: BP 120/71; PULSE 96; RESP 16; TEMP 98.3; O2SAT 95
[2024-04-03 07:26] VITALS: BP 119/77; PULSE 84; RESP 14; TEMP 97.8; O2SAT 98
[2024-04-03 08:15] VITALS: RESP 14; O2SAT 98
[2024-04-03 19:00] VITALS: RESP 20; O2SAT 97
[2024-04-03 19:21] VITALS: BP 143/90; PULSE 107; RESP 20; TEMP 98.2; O2SAT 97
[2024-04-04 07:22] VITALS: BP 101/65; PULSE 76; RESP 12; TEMP 97.5; O2SAT 98
[2024-04-04 19:00] VITALS: RESP 18; O2SAT 96
[2024-04-04 20:00] VITALS: BP 120/87; PULSE 103; RESP 18; TEMP 97.9; O2SAT 96
[2024-04-05 07:39] VITALS: BP 106/63; PULSE 103; RESP 16; TEMP 98.1; O2SAT 99
[2024-04-05 19:00] VITALS: RESP 18; O2SAT 95
[2024-04-05 19:24] VITALS: BP 110/58; PULSE 102; RESP 18; TEMP 99.8; O2SAT 94
[2024-04-06 05:55] VITALS: TEMP 98.1
[2024-04-06 06:50] VITALS: BP 108/51; PULSE 94; RESP 16; TEMP 98.2; O2SAT 96
[2024-04-06 07:21] VITALS: BP 108/51; PULSE 94; RESP 16; TEMP 98.2; O2SAT 96
[2024-04-06 19:00] VITALS: RESP 16; O2SAT 96
[2024-04-06 19:30] VITALS: BP 141/87; PULSE 107; RESP 12; TEMP 97.7; O2SAT 97
[2024-04-06] MEDS ORDERED: ondansetron 4mg rapidly disintigrating tab PO PRN (20:40)
[2024-04-06] MEDS: ascorbic acid 500mg tablet PO SCH (20:44)
[2024-04-07 07:30] VITALS: BP 117/89; PULSE 72; RESP 16; TEMP 98.9; O2SAT 97
[2024-04-07] MEDS: cholecalciferol (vitamin D3) 1,000 unit (25mcg) tablet PO SCH (07:50)
[2024-04-07] MEDS: zinc sulfate 220mg capsule PO SCH (07:51)
[2024-04-07 19:00] VITALS: BP 132/78; PULSE 86; RESP 22; TEMP 98.9; O2SAT 96
[2024-04-08 07:30] VITALS: BP 112/72; PULSE 92; RESP 16; TEMP 97.1; O2SAT 97
[2024-04-08 19:04] VITALS: RESP 18; O2SAT 100
[2024-04-08 19:08] VITALS: BP 140/97; PULSE 100; RESP 18; TEMP 98.3; O2SAT 100
[2024-04-09 07:00] VITALS: RESP 16; O2SAT 96
[2024-04-09 08:00] VITALS: BP 116/83; PULSE 104; RESP 16; TEMP 97.5; O2SAT 96
[2024-04-09 19:35] VITALS: BP 125/72; PULSE 77; RESP 16; TEMP 97.4; O2SAT 96
[2024-04-09 20:00] VITALS: RESP 16; O2SAT 96
[2024-04-10 07:30] VITALS: BP 123/81; PULSE 90; RESP 16; TEMP 96.5; O2SAT 94
[2024-04-10 19:40] VITALS: RESP 16; O2SAT 96
[2024-04-10 20:00] VITALS: BP 116/77; PULSE 82; RESP 16; TEMP 98.4; O2SAT 96
[2024-04-11 08:00] VITALS: BP 117/67; PULSE 94; RESP 20; TEMP 97.1; O2SAT 94
[2024-04-11 19:00] VITALS: RESP 18; O2SAT 97
[2024-04-11 20:00] VITALS: BP 125/88; PULSE 110; RESP 18; TEMP 98.3; O2SAT 97
[2024-04-12 07:30] VITALS: BP 136/84; PULSE 101; RESP 16; TEMP 97.7; O2SAT 98
[2024-04-12 19:00] VITALS: RESP 18; O2SAT 95
[2024-04-12 20:00] VITALS: BP 93/75; PULSE 113; RESP 18; TEMP 97.7; O2SAT 100
[2024-04-13 07:00] VITALS: RESP 16; O2SAT 98
[2024-04-13 08:00] VITALS: O2SAT 16
[2024-04-13 19:00] VITALS: RESP 18; O2SAT 100
[2024-04-13 20:00] VITALS: BP 122/79; PULSE 106; RESP 18; TEMP 98.3; O2SAT 100
[2024-04-14 07:30] VITALS: BP 127/80; PULSE 87; RESP 12; TEMP 97.6; O2SAT 96
[2024-04-14 20:00] VITALS: BP 127/96; PULSE 87; RESP 12; TEMP 99.9; O2SAT 95
[2024-04-15 08:00] VITALS: BP 109/63; PULSE 88; RESP 14; TEMP 97.1; O2SAT 98
[2024-04-15 19:21] VITALS: BP 119/87; PULSE 96; RESP 18; TEMP 97.4; O2SAT 97
[2024-04-15 19:22] VITALS: RESP 18; O2SAT 97
[2024-04-16 07:00] VITALS: RESP 16; O2SAT 97
[2024-04-16 08:12] VITALS: BP 116/80; PULSE 90; RESP 16; TEMP 98.2; O2SAT 97
[2024-04-16 19:00] VITALS: BP 108/81; PULSE 102; RESP 16; TEMP 97.9; O2SAT 96
[2024-04-17 08:43] VITALS: BP 127/87; PULSE 100; RESP 16; TEMP 98.2; O2SAT 99
== END 2024-04-17 08:57 | DRG 750 ==
LOC: ADULT MH 10:20 → UNDODISIN 02-08 16:11 → ADULT MH 04-02 18:00
PROVIDERS: ADMIT Psychiatry & Neurology Psychiatry; ATTEND Psychiatry & Neurology Psychiatry
PROC: 2W3RXYZ Immobilization of Left Lower Leg using Other Device (ICD-10-PCS; principal; 2024-01-07)
PROC: GZHZZZZ Group Psychotherapy (ICD-10-PCS; 2024-01-10)
PROC: GZ51ZZZ Individual Psychotherapy, Behavioral (ICD-10-PCS; 2024-01-10)
DX: F20.9 Schizophrenia, unspecified (principal); U07.1 COVID-19; R45.851 Suicidal ideations; S82.492A Other fracture of shaft of left fibula, initial encounter for closed fracture; W18.39XA Other fall on same level, initial encounter; F32.A Depression, unspecified; G89.29 Other chronic pain; F17.210 Nicotine dependence, cigarettes, uncomplicated; K42.9 Umbilical hernia without obstruction or gangrene; F41.9 Anxiety disorder, unspecified; M54.50 Low back pain, unspecified; Z59.00 Homelessness unspecified; Z79.899 Other long term (current) drug therapy; Y93.89 Activity, other specified; Y92.89 Other specified places as the place of occurrence of the external cause; Y99.8 Other external cause status; Z56.0 Unemployment, unspecified
CPT/HCPCS: 36415; 72100; 80048; 80061; 82948; 83036; 85025; 87081; 87811; A6250; J3490